=== PATIENT | female | born 1925 | race Caucasian/White ===

== ENCOUNTER 2016-12-20 11:57 | Inpatient (IN) | payer OTHER, MEDICARE ==
[2016-12-20] MEDS ORDERED: SODIUM CHLORIDE 1,000 ML IV STA (12:18)
[2016-12-20 12:26] LABS: BASOPHIL 0.2 % (0-2.0); EOSINOPHIL 14.1 % (0-4.5); MCH 29.9 pg (25.7-33.7); MCHC 32.8 g/dl (32.0-36.0); MEAN CELL VOLUME 91.2 fl (80-96); MEAN PLT VOLUME 8.2 fl (7.5-11.1); NEUTROPHILS 65.2 % (42.8-82.8); PLATELET COUNT 205 K/MM3 (134-434); RDW 13.2 % (11.6-15.6); WHITE BLOOD COUNT 15.7 K/mm3 (4.0-10.0)
[2016-12-20 12:40] LABS: INR 1.18 (0.82-1.09)
[2016-12-20 12:43] LABS: ACTIVATED PTT 22.8 SECONDS (26.9-34.4)
[2016-12-20 12:51] LABS: STOOL FOR OCCULT BLOOD POSITIVE (NEGATIVE)
[2016-12-20 12:54] LABS: URINE APPEARANCE CLOUDY; URINE BILIRUBIN NEGATIVE (NEGATIVE); URINE BLOOD NEGATIVE (NEGATIVE); URINE COLOR DKYELLOW; URINE GLUCOSE (UA) NEGATIVE (NEGATIVE); URINE KETONE NEGATIVE (NEGATIVE); URINE LEUK ESTERASE NEGATIVE (NEGATIVE); URINE NITRITE NEGATIVE (NEGATIVE); URINE UROBILINOGEN NEGATIVE E.U./dl (0.2-1.0)
[2016-12-20 12:57] LABS: URINE PROTEIN 2+ (NEGATIVE)
[2016-12-20 12:58] LABS: URINE RBC 1 /hpf (0-3); URINE WBC 1 /hpf (3-5)
[2016-12-20 13:00] LABS: ALBUMIN 2.7 g/dl (3.4-5.0); ANION GAP 8 (8-16); BILIRUBIN,TOTAL 0.8 mg/dL (0.2-1.0); CALCIUM 8.2 mg/dL (8.5-10.1); CO2 25 mmol/L (21-32); GLUCOSE,RANDOM 142 mg/dL (74-106); SGOT/AST 15 U/L (15-37); SGPT/ALT 16 U/L (12-78); TOT PROT 5.3 g/dl (6.4-8.2)
[2016-12-20 13:02] LABS: ALK PHOS 90 U/L (45-117); TROPONIN I < 0.02 ng/ml (0.00-0.05)
--- NOTE | 2016-12-20 14:28 | PDOC ---
History of Present Illness - General Chief Complaint: Rectal Bleed Stated Complaint: RECTAL BLEEDING Time Seen by Provider: 12/20/16 12:17 History Source: Patient, Family Exam Limitations: No Limitations - History of Present Illness Travel History: No Initial Comments: 12/20/16 14:42 This is an 89 yo F with PMH of diverticular bleed (s/p partial colectomy 20 yrs ago, last occurence 5 ys ago, self resolving), incarcerated hernia repair (2012 Dr Wolff), IDDM, HTN and asthma, who presets due to acute GIB since 10 am this morning. She has since had 4 episodes of bright red, clumpy, nonpainful hematochezia. She was started on Naproxen 2 days ago by PCP for body pain s/p mechanical fall on Mon. She had nonmelenous nonmucous diarrhea for 2 days prior to the bleed. She complains mild nausea and lightheadedness, diffuse dull abdominal pain exacerbated by movement and occasional burning epigastric pain since this AM. Patient states that for the past week her PCP Dr Madrid has been working her up for leukocytosis, with a negative TTE on , negative chest CT and poor result pulmonary fxn test. She denies f/c, chest pain, sob, cough, orthopnea, palpitations, h/a, dysuria. 12/20/16 15:01 Abd x ray no free air or distended bowel CT abd w contrast ordered 12/20/16 15:04 CT abd/pelvis w. IV contrast shows diffuse diverticulosis, probable mild acute diverticulitis in transverse and L colon, 2 small ventral hernias containing fat. For further details please refer to report. 12/20/16 15:32 12/20/16 15:42 patient transferred to ICU bed 1 12/20/16 17:27 Timing/Duration: reports: constant Quality: reports: moderate Abdominal Pain Onset Location: reports: generalized abdomen Pain Radiation: reports: no radiation Activities at Onset: reports: none Aggravating Factors: improves with: Movement Alleviating Factors: improves with: None Past History - Travel Traveled outside of the country in the last 30 days: No Close contact w/someone who was outside of country & ill: No - Past Medical History Allergies/Adverse Reactions: Allergies Allergy/AdvReac Type Severity Reaction Status Date / Time codeine AdvReac "VIOLENTLY Verified 12/20/16 12:13 NAUSEAUS" morphine AdvReac "VIOLENTLY Verified 12/20/16 12:13 NAUSEAUS" Home Medications: Ambulatory Orders Albuterol Sulfate [Proair Respiclick] 90 mcg IH DAILY 12/20/16 Amlodipine Besylate [Norvasc -] 10 mg PO DAILY 12/20/16 Budesonide/Formeterol Fumarate [SYMBICORT 160/4.5mcg -] 1 inh PO DAILY 12/20/16 Escitalopram Oxalate [Lexapro -] 10 mg PO DAILY 12/20/16 Glipizide 7.5 mg PO DAILY 12/20/16 Insulin (Levemir) [Levemir Flexpen -] 14 units SQ DAILY 12/20/16 L.acidoph,Paracasei, B.lactis [Probiotic] 1 each PO DAILY 12/20/16 Lisinopril [Prinivil] 20 mg PO DAILY 12/20/16 Methimazole 10 mg PO DAILY 12/20/16 Metoprolol Tartrate 25 mg PO DAILY 12/20/16 Pantoprazole Sodium 40 mg PO DAILY 12/20/16 Vitamin B Complex 1 each PO DAILY 12/20/16 Anemia: No Asthma: Yes Cancer: No Cardiac Disorders: No Hx Myocardial Infarction: No CVA: No COPD: No CHF: No DVT: No Dementia: No Diabetes: Yes (INSULIN DEPENDENT) Dialysis: No GI Disorders: Yes (DIVERTICULOSIS) Disorders: No HTN: Yes Hypercholesterolemia: No Kidney Stones: No Liver Disease: No Thyroid Disease: No Lung CA: No - Surgical History Abdominal Surgery: Yes (PARTIAL COLECTOMY, 3 HERNIA REPAIRS, LAST IN 2012 ) Appendectomy: No Cardiac Surgery: No Cholecystectomy: No Other Surgical History: 12/20/16 15:41 HYSTERECTOMY, LARYNGEAL SURGERY - Psycho/Social/Smoking Cessation Hx Anxiety: No Suicidal Ideation: No Smoking Status: No Smoking History: Never smoked Number of Cigarettes Smoked Daily: 0 Hx Alcohol Use: No Drug/Substance Use Hx: No Substance Use Type: None Abd/GI Specific PMHX - Complaint Specific PMHX Colitis: No Diverticulitis: No Gall Bladder Disease: No GERD: Yes Hepatitis: No Irritable Bowel Synd (IBS): No Pancreatitis: No GI Ulcer Disease: No Other History: diverticular bleed Review of Systems - Review of Systems Able to Perform ROS?: Yes Is the patient limited Hebrew proficient: No Constitutional: No: Chills, Fever, Malaise Respiratory: No: Orthopnea, Shortness of Breath, SOB with Exertion, SOB at Rest Cardiac (ROS): Yes: Edema (chronic pedal ), Lightheadedness. No: Chest Pain, Irregular Heart Rate, Palpitations, Syncope, Chest Tightness ABD/GI: Yes: Abdominal Distended, Diarrhea, Nausea, Rectal Bleeding. No: Abd. Pain w/ defecation, Constipated, Vomiting, Abdominal cramping, Tarry Stools : No: Dysuria Musculoskeletal: No: Back Pain Integumentary: Yes: Bruising (on r shouolder, R hip, R knee s/p fall on mon ) Neurological: No: Headache Hematologic/Lymphatic: No: Anemia, Easy Bleeding, Easy Bruising *Physical Exam - Vital Signs Last Vital Signs Temp Pulse Resp BP Pulse Ox 98.2 F 66 18 128/51 100 12/20/16 12:10 12/20/16 13:36 12/20/16 13:36 12/20/16 13:36 12/20/16 13:36 - Physical Exam General Appearance: Yes: Moderate Distress HEENT: positive: EOMI, FERNANDO, Symmetrical Neck: positive: Supple Respiratory/Chest: positive: Lungs Clear, Normal Breath Sounds. negative: Crackles, Rales Cardiovascular: positive: Regular Rhythm, Regular Rate, S1, S2, Edema ( nonmitting moderate pedal edema (chronic) ). negative: JVD Gastrointestinal/Abdominal: positive: Tender (very tender, even during light percussion, especially in upper quadrants ), Decreased BS, Distended ( moderately ), Guarding (involutary, more in upper quadrants ). negative: Rebound, Hepatomegaly Rectal Exam: positive: decreased tone, heme positive stool, other (bright red blood, no lesions, nonpainful ). negative: melena Musculoskeletal: negative: CVA Tenderness Extremity: positive: Pedal Edema. negative: Calf Tenderness Integumentary: positive: Dry, Warm, Pale Neurologic: positive: braker passenger train II-XII NML intact, Fully Oriented, Alert, Motor Strength 5/5 ED Treatment Course - LABORATORY CBC & Chemistry Diagram: 12/20/16 16:45 12/20/16 12:20 - ADDITIONAL ORDERS Additional order review: Laboratory Results 12/20/16 12/20/16 12/20/16 12:42 12:20 12:20 INR PTT (Actin FS) Sodium 142 Potassium 4.9 Chloride 109 H Carbon Dioxide 25 Anion Gap 8 BUN 25 H D Creatinine 1.0 Creat Clearance w eGFR 52.20 Random Glucose 142 H D Lactic Acid Calcium 8.2 L Total Bilirubin 0.8 AST 15 D ALT 16 D Alkaline Phosphatase 90 Creatine Kinase 34 Troponin I < 0.02 Total Protein 5.3 L D Albumin 2.7 L D Lipase 81 Urine Color Dkyellow Urine Appearance Cloudy Urine pH 5.0 Urine Protein 2+ H Urine Glucose (UA) Negative Urine Ketones Negative Urine Blood Negative Urine Nitrite Negative Urine Bilirubin Negative Urine Urobilinogen Negative Ur Leukocyte Esterase Negative Urine RBC 1 Urine WBC 1 Ur Epithelial Cells Rare Stool Occult Blood Positive Blood Type O POSITIVE Antibody Screen Negative 12/20/16 12/20/16 12:20 12:20 INR 1.18 H PTT (Actin FS) 22.8 L Sodium Potassium Chloride Carbon Dioxide Anion Gap BUN Creatinine Creat Clearance w eGFR Random Glucose Lactic Acid 1.4 Calcium Total Bilirubin AST ALT Alkaline Phosphatase Creatine Kinase Troponin I Total Protein Albumin Lipase Urine Color Urine Appearance Urine pH Urine Protein Urine Glucose (UA) Urine Ketones Urine Blood Urine Nitrite Urine Bilirubin Urine Urobilinogen Ur Leukocyte Esterase Urine RBC Urine WBC Ur Epithelial Cells Stool Occult Blood Blood Type Antibody Screen 12/20/16 12:20 RBC 3.31 L MCV 91.2 MCHC 32.8 RDW 13.2 MPV 8.2 D Neutrophils % 65.2 Lymphocytes % 14.6 D Monocytes % 5.9 Eosinophils % 14.1 H Basophils % 0.2 12/20/16 16:17 cardiac profile negative, lactic acid negative 12/20/16 16:18 - RADIOLOGY Radiology Studies Ordered: Category Date Time Status ABDOMEN FLAT & UPRIGHT [RAD] Stat Radiology 12/20/16 12:58 Completed 12/20/16 16:18 XCR, abd x ray no acute pathology CT abd, pelvis with IV contrast w/o PO contrast Radiograph Interpretation: 12/20/16 16:19 12/20/16 16:19 - Medications Given in the ED: ED Medications Discontinued Medications Generic Name Dose Route Start Last Admin Trade Name Freq PRN Reason Stop Dose Admin Sodium Chloride 1,000 mls @ 1,000 mls/hr 12/20/16 12:18 12/20/16 12:41 Normal Saline - IV 12/20/16 13:17 1,000 mls/hr ASDIR STA Administration 12/20/16 16:19 NS 500 cc bolus max auguste NS @ 75 - Consult/PCP Time Called: 14:20 Case discussed with personal care physician: Ratna Plasencia Case discussed with consulting physician: Joseph Gerber - Additional Consults Time Called: 12:20 (message left ) Consult/PCP: Dr Wolff Medical Decision Making - Critical Care Time Total Critical Care Time (minutes): 90 Critical Care Statement: The care of this patient involved high complexity decision making to prevent further life threatening deterioration of the patient 's condition and/or to evalute & treat vital organ system(s) failure or risk of failure. *DC/Admit/Observation/Transfer Diagnosis at time of Disposition: Gastrointestinal bleed, Hypotension, Abdominal pain - Discharge Dispostion Admit: Yes Decision to Admit order Date/Time: 12/20/16 16:01 12/20/16 16:01 patient requires ICU monitoring 12/20/16 16:31 - Referrals
[2016-12-20] MEDS ORDERED: METRONIDAZOLE 500 MG PREMIXED 100 ML IVPB ONE ×2 (14:30→14:33)
--- NOTE | 2016-12-20 14:31 | PDOC ---
Attending Attestation - Resident Resident Name: Amina Basurto - ED Attending Attestation I have performed the following: I have examined & evaluated the patient, The case was reviewed & discussed with the resident, I agree w/resident's findings & plan, Exceptions are as noted - HPI HPI: 12/20/16 14:29 Agree with the resident's HPI as documented in the electronic medical record. - Physicial Exam PE: 12/20/16 14:29 Agree with the resident's physical examination as documented in the electronic medical record. - Medical Decision Making 12/20/16 14:29 89-year-old female with history of incarcerated abdominal hernia, diverticulitis /diverticulosis with GI bleed and partial colectomy in the past, hypertension, COPD who presents the emergency department with 4 bloody bowel movements and abdominal pain today. The patient was initially hypotensive but responded nicely to a fluid bolus. Differential diagnosis includes but is not limited to: Diverticular bleed, rapid upper GI bleed, AVM, anemia, dehydration, electrolyte abnormality, toxic/metabolic derangement. Plan: 1. Labs 2. Type and cross for 2 units 3. Urine analysis 4. CT scan of abdomen and pelvis 5. Pain management 6. Admit to a monitored setting 7. GI and general surgery consult
[2016-12-20] MEDS ORDERED: PIPERACILLIN/TAZOB 3.375 GM 50 ML IVPB ONE (14:33)
[2016-12-20] MEDS: PIPERACILLIN/TAZOB 3.375 GM 3.375 GM in DEXTROSE 5%-WATER - 50 ML IVPB ONE ×2 (14:33→15:11)
[2016-12-20] MEDS: SODIUM CHLORIDE 1,000 ML IV SCH (15:11)
--- NOTE | 2016-12-20 16:24 | EKG ---
Test Reason : Blood Pressure : / mmHG Vent. Rate : 071 BPM Atrial Rate : 071 BPM P-R Int : 126 ms QRS Dur : 104 ms QT Int : 414 ms P-R-T Axes : -04 -64 034 degrees QTc Int : 449 ms POOR DATA QUALITY, INTERPRETATION MAY BE ADVERSELY AFFECTED SINUS RHYTHM WITH PREMATURE ATRIAL COMPLEXES INCOMPLETE RIGHT BUNDLE BRANCH BLOCK LEFT ANTERIOR FASCICULAR BLOCK ABNORMAL ECG WHEN COMPARED WITH ECG OF 06-OCT-2012 20:09, INCOMPLETE RIGHT BUNDLE BRANCH BLOCK HAS REPLACED RIGHT BUNDLE BRANCH BLOCK T WAVE INVERSION NO LONGER EVIDENT IN ANTERIOR LEADS Confirmed by RASHAD YAÑEZ MD ([id number]) on 12/20/2016 4:23:58 PM Referred By: Confirmed By:RASHAD YAÑEZ MD
[2016-12-20 17:04] LABS: MCH 29.4 pg (25.7-33.7); MCHC 32.3 g/dl (32.0-36.0); MEAN PLT VOLUME 8.3 fl (7.5-11.1); PLATELET COUNT 177 K/MM3 (134-434); RDW 13.2 % (11.6-15.6); WHITE BLOOD COUNT 9.8 K/mm3 (4.0-10.0)
[2016-12-20 17:23] VITALS: BMI 32.2
[2016-12-20] MEDS: METRONIDAZOLE 500 MG PREMIXED 100 ML IVPB SCH (18:08)
--- NOTE | 2016-12-20 18:18 | CONSULT ---
Consult Consult Specialty:: PULM / CCM Referred by:: Dr. Ratna Plasencia Reason for Consultation:: GIB - History of Present Illness Chief Complaint: BRBPR History of Present Illness: Ms. Baron is an 89 y/o woman (Pt of Dr. Bere Madrid) w/ PMHx/o diverticular bleed (s/p partial colectomy 20 yrs ago, last occurence 5 ys ago, self resolving), incarcerated hernia repair (2012 Dr Wolff), IDDM, HTN and asthma , who presets to the ED today c/o BRBPR X 4 episodes since 10 AM this morning. Of note, the pt was recently started on Naproxen by her PCP for body pain s/p mechanical fall at home. In ED Hgb slid from 9.9 --> 7.8. pt presented w/ soft S & S of a possible peritonitis. CTAP shows diverticulitis. Pt transferred to the ICU for GIB. - History Source History Provided By: Patient, Family Member Limitations to Obtaining History: No Limitations - Past Medical History Cardio/Vascular: Yes: HTN Pulmonary: Yes: Asthma Gastrointestinal: Yes: Diverticulitis, Diverticulosis, GI Bleed Endocrine: Yes: Diabetes Mellitus - Past Surgical History Past Surgical History: Yes: Colectomy, Hernia Repair - Alcohol/Substance Use Hx Alcohol Use: No History of Substance Use: reports: None - Smoking History Smoking history: Never smoked Aproximately how many cigarettes per day: 0 - Social History Usual Living Arrangement: Other (Daughter Lives upstairs) Place of : [facility] History of Recent Travel: No Home Medications - Allergies Allergies/Adverse Reactions: Allergies Allergy/AdvReac Type Severity Reaction Status Date / Time codeine AdvReac "VIOLENTLY Verified 12/20/16 12:13 NAUSEAUS" morphine AdvReac "VIOLENTLY Verified 12/20/16 12:13 NAUSEAUS" - Home Medications Home Medications: Ambulatory Orders Albuterol Sulfate [Proair Respiclick] 90 mcg IH DAILY 12/20/16 Amlodipine Besylate [Norvasc -] 10 mg PO DAILY 12/20/16 Budesonide/Formeterol Fumarate [SYMBICORT 160/4.5mcg -] 1 inh PO DAILY 12/20/16 Escitalopram Oxalate [Lexapro -] 10 mg PO DAILY 12/20/16 Glipizide 7.5 mg PO DAILY 12/20/16 Insulin (Levemir) [Levemir Flexpen -] 14 units SQ DAILY 12/20/16 L.acidoph,Paracasei, B.lactis [Probiotic] 1 each PO DAILY 12/20/16 Lisinopril [Prinivil] 20 mg PO DAILY 12/20/16 Methimazole 10 mg PO DAILY 12/20/16 Metoprolol Tartrate 25 mg PO DAILY 12/20/16 Pantoprazole Sodium 40 mg PO DAILY 12/20/16 Vitamin B Complex 1 each PO DAILY 12/20/16 Family Disease History - Family Disease History Family Disease History: Heart Disease: Mother Review of Systems - Review of Systems Constitutional: reports: No Symptoms Eyes: reports: No Symptoms HENT: reports: No Symptoms Neck: reports: No Symptoms Cardiovascular: reports: No Symptoms Respiratory: reports: No Symptoms Gastrointestinal: reports: Abdominal Pain, Diarrhea, Nausea, Rectal Bleeding Genitourinary: reports: No Symptoms Breasts: reports: No Symptoms Reported Musculoskeletal: reports: No Symptoms Integumentary: reports: No Symptoms Neurological: reports: No Symptoms Endocrine: reports: No Symptoms Hematology/Lymphatic: reports: No Symptoms Psychiatric: reports: No Symptoms Pain Intensity: 6 Physical Exam Vital Signs: Vital Signs Temperature 98.2 F 12/20/16 17:06 Pulse Rate 64 12/20/16 17:06 Respiratory Rate 18 12/20/16 17:06 Blood Pressure 135/41 12/20/16 17:06 O2 Sat by Pulse Oximetry (%) 95 12/20/16 17:06 Constitutional: Yes: Well Nourished, No Distress Eyes: Yes: WNL, Conjunctiva Clear, EOM Intact HENT: Yes: WNL, Atraumatic, Normocephalic Neck: Yes: WNL, Supple, Trachea Midline Cardiovascular: Yes: WNL, Regular Rate and Rhythm Respiratory: Yes: WNL, Regular, CTA Bilaterally Gastrointestinal: Yes: WNL, Normal Bowel Sounds, Soft, Abdomen, Obese, Distention, Rectal Bleeding ...Rectal Exam: Yes: Deferred Renal/: Yes: WNL Breast(s): Yes: WNL Musculoskeletal: Yes: WNL Extremities: Yes: WNL Edema: No Peripheral Pulses WNL: No Neurological: Yes: WNL, Alert ...Motor Strength: WNL Psychiatric: Yes: WNL, Alert, Oriented Labs: CBC, BMP 12/20/16 16:45 Imaging - Results Chest X-ray: Image Reviewed (12/20: No ETT, No CVC, retrocardiac opacity (My Read) .) Cat Scan: Report Reviewed (12/20: Transverse L colon Diverticulitis.) EKG: Image Reviewed (RSR in the 70's w/ ect, incomplete R BBB, L ant fascicular block, no ST or T-wave aberrations, QTc = 449ms, no acute process (My Read).) Problem List - Problems (1) Gastrointestinal bleed Code(s): K92.2 - GASTROINTESTINAL HEMORRHAGE, UNSPECIFIED (2) Diverticulitis large intestine Code(s): K57.32 - DVTRCLI OF LG INT W/O PERFORATION OR ABSCESS W/O BLEEDING (3) Hypertension Code(s): I10 - ESSENTIAL (PRIMARY) HYPERTENSION (4) Asthma Code(s): J45.909 - UNSPECIFIED ASTHMA, UNCOMPLICATED (5) Diabetes Code(s): E11.9 - TYPE 2 DIABETES MELLITUS WITHOUT COMPLICATIONS Assessment/Plan ASSESS: -GIB -HTN -Asthma -IDDM PLAN: -NPO -FSs -Supp FiO2 for an SpO2 > 92% -Nebs -IS -HOB > 30 -Active T & S -Large bore IVs X 2 -Serial CBCs -Normal transfusion thresholds -IV Tylenol for Pain -GI Consult -SX Consult -Strict I's & O's -Trend BUN/Cr -Replete e-lytes prn -PPI -Hold off on any AC while GIB -Can cover broad w/ LVQ -D/c to Med Surg Thank you for this interesting consult Ryan Zacarias, ACNP-BC [id number] PULM / CCM
--- NOTE | 2016-12-20 18:48 | CONS ---
DATE OF CONSULTATION: 12/20/2016 I was asked by the ER to evaluate this patient for hematochezia. The patient is an 89-year-old white female, who can elicit some of her medical history. She is alert and conversant. Apparently she tells me that she has a past medical history of gastrointestinal disease; she has had extensive diverticular disease; and reports over 20 years ago having a partial colectomy for diverticular bleeding. She has followed with Dr. Harkins over the years. She thought her last colonoscopy was around 5 years ago but he has not been here for over 10 years. So anyway, her last exam she says showed diverticulosis without other findings. She says every 4 to 5 years she comes in with an episode of rectal bleeding that she believes is due to diverticular disease. The patient otherwise had been feeling fine until recently. No problems eating, going to the bathroom. She says a couple days ago, about 3 days ago, she fell. She bruised her right hip, and for the pain she was put on Naprosyn twice a day. This morning she awakened and had some abdominal cramping and urgency to go to the bathroom; and she had bright red blood: she had 1 large episode. She has not had further bleeding since she has been to the ER, where she came right afterward. The patient thinks she may have passed out. She was dizzy. Other than that, she has had no significant recent loss of appetite, dysphagia, early satiety, significant heartburn, or change in bowel habits. The patient has a past medical history of hypertension, COPD. She says she never smoked and does not drink alcohol. Apparently she says that her only surgery was the prior partial colectomy, although in the chart it says that she has a history of AVMs as well. It looks like we have not seen this patient in the past. It looks like she underwent surgery in 2012. She had a ventral hernia repair with mesh, done by Dr. Pederson. She has also seen Dr. Wolff at that time. She has seen Dr. Nathan, of Cardiology. She had a prior CAT scan in September of 2012 that noted a jejunal partial small-bowel obstruction due to the ventral hernia and that was what indicated surgery at that time. She says since then she has done quite well. MEDICATIONS: Currently in the ER she is getting Zofran, lisinopril, Levaquin, and Flagyl. It looks like she got Zosyn and Unasyn. Currently on physical exam, she is in absolutely no acute distress. She is slightly pale in appearance. She appears comfortable. She is breathing easy. She is a heavyset woman, elderly. Her dentition is extremely poor. Her mouth is very dry. Her abdomen is distended, and there is a healed scar that is large and vertical, and there is significant tenderness to palpation in the left upper quadrant. There is no rebound or guarding. The other quadrants on palpation are not as tender. I did not do the rectal because the ER team stated that they did and that she had bright red blood from below. Her lab data is notable in that her white count is 16,000 with a hemoglobin 9.9, hematocrit 30. Prior, she had a hemoglobin of 10 when she was discharged from her prior surgery but before that, her hemoglobin was 12. Her MCV is now 91, with 205,000 platelets. Her coagulation studies reveal an INR of 1.1. Her chemistries: serum sodium 142, potassium 4.9, chloride 109, bicarbonate 25, BUN 25, creatinine 1, AST 15, ALT 16, alkaline phosphatase of 90, lipase is 81, albumin 2.7. It is my impression this patient is an 89-year-old woman with multiple medical problems, who has a history of significant diverticular disease in the past. She is status post partial colectomy and comes in with acute hematochezia in the setting of recent acute nonsteroidal usage. She had some abdominal cramping. She has tenderness in the left upper quadrant, and she has an elevated white count. I question whether she has an underlying ischemic colitis. Other possibilities could be NSAID-induced ulceration of the small bowel and colon. At the present time, she appears to be hemodynamically stable. I agree with empiric antibiotics and abdominal imaging, keeping her n.p.o. for now. If her hemoglobin and hematocrit remains stable, and her vitals, I would certainly start a clear liquid diet and see how this plays out. If she has onset of acute abrupt hemodynamically unstable bleeding, then she may need a CT angio and intervention. Otherwise, once she is improved, she should be cleaned out, when she is medically stable, to undergo a diagnostic colonoscopy. But for now, I agree with your current management and supportive care. The patient's hemoglobin of 9.9 is prehydration. I suspect post hydration her value will drop so that should be watched closely, at which point a transfusion may be necessary. We will continue to be available to aid in management of this patient. Should she also have more brisk bleeding, then there would be no harm in starting some IV octreotide. We will continue to be available to aid in management of this patient. Thank you kindly. CARMEN MENDOZA M.D. [id number]
[2016-12-20] MEDS ORDERED: ACETAMINOPHEN 1000 MG/100 ML VIAL (NON FORMULARY) IVPB ONE (18:49)
[2016-12-20] MEDS: PANTOPRAZOLE SODIUM 40 MG/100 ML PRE-DOCKED IVPB SCH (21:52)
[2016-12-20] MEDS ORDERED: PANTOPRAZOLE SODIUM 40 MG in SODIUM CHLORIDE 100 ML IVPB SCH (22:00)
[2016-12-21] MEDS: METRONIDAZOLE 500 MG PREMIXED 100 ML IVPB SCH ×3 (02:00→17:18)
--- NOTE | 2016-12-21 08:25 | HP ---
Admitting History and Physical - Primary Care Physician PCP: Bree Madrid - Past Medical History Cardiovascular: Yes: HTN Pulmonary: Yes: Asthma Gastrointestinal: Yes: Diverticulitis, Diverticulosis, GI Bleed Endocrine: Yes: Diabetes Mellitus - Past Surgical History Past Surgical History: Yes: Colectomy, Hernia Repair - Smoking History Smoking history: Never smoked Aproximately how many cigarettes per day: 0 - Alcohol/Substance Use Hx Alcohol Use: No History of Substance Use: reports: None - Social History History of Recent Travel: No <Bree Madrid - Last Filed: 12/21/16 08:25> - Admission History of Present Illness: This is an 89 yo F with PMH of diverticular bleed (s/p partial colectomy 20 yrs ago, last occurence 5 ys ago, self resolving), incarcerated hernia repair (2012 Dr Wolff), IDDM, HTN, thyroiditis, vocal cord tumour and asthma, who presets due to acute GIB. She has since had 4 episodes of bright red, clumpy, nonpainful hematochezia. She was started on Naproxen 2 days ago by me for body pain s/p mechanical fall on Mon. She had nonmelenous nonmucous diarrhea for 2 days prior to the bleed. She complains mild nausea and lightheadedness, diffuse dull abdominal pain exacerbated by movement and occasional burning epigastric pain since this AM. Patient transfused. Given IVF with significant improvement of BP. Cat scan showed diverticulosis with mild acute diverticulitis. Patient also started on IV abx. Patient admitted to ICU for close monitoring. GI as well as Surgery consult requested. Patient seen by me in ICU today. Chart reviewed, events noted. Patient is pale but says she feels better. Still very weak. No further bleeding so far. Complains of mild abdominal pain. Denies chest pain. History Source: Patient Limitations to Obtaining History: No Limitations <Nichole Hubbard - Last Filed: 12/21/16 10:57> Home Medications <Bree Madrid - Last Filed: 12/21/16 08:25> <Nichole Hubbard - Last Filed: 12/21/16 10:57> - Allergies Allergies/Adverse Reactions: Allergies Allergy/AdvReac Type Severity Reaction Status Date / Time codeine AdvReac "VIOLENTLY Verified 12/20/16 12:13 NAUSEAUS" morphine AdvReac "VIOLENTLY Verified 12/20/16 12:13 NAUSEAUS" - Home Medications Home Medications: Ambulatory Orders Albuterol Sulfate [Proair Respiclick] 90 mcg IH DAILY 12/20/16 Amlodipine Besylate [Norvasc -] 10 mg PO DAILY 12/20/16 Budesonide/Formeterol Fumarate [SYMBICORT 160/4.5mcg -] 1 inh PO DAILY 12/20/16 Escitalopram Oxalate [Lexapro -] 10 mg PO DAILY 12/20/16 Glipizide 7.5 mg PO DAILY 12/20/16 Insulin (Levemir) [Levemir Flexpen -] 14 units SQ DAILY 12/20/16 L.acidoph,Paracasei, B.lactis [Probiotic] 1 each PO DAILY 12/20/16 Lisinopril [Prinivil] 20 mg PO DAILY 12/20/16 Methimazole 10 mg PO DAILY 12/20/16 Metoprolol Tartrate 25 mg PO DAILY 12/20/16 Pantoprazole Sodium 40 mg PO DAILY 12/20/16 Vitamin B Complex 1 each PO DAILY 12/20/16 Family Disease History - Family Disease History Family Disease History: Heart Disease: Mother <Bree Madrid - Last Filed: 12/21/16 08:25> Review of Systems Findings/Remarks: see HPI <Nichole Hubbard - Last Filed: 12/21/16 10:57> Physical Examination Vital Signs: Vital Signs Temperature 97.8 F 12/21/16 02:00 Pulse Rate 71 12/21/16 04:00 Respiratory Rate 20 12/21/16 04:00 Blood Pressure 142/57 12/21/16 04:00 O2 Sat by Pulse Oximetry (%) 96 12/20/16 20:59 Labs: CBC, BMP 12/20/16 16:45 <Bree Madrid - Last Filed: 12/21/16 08:25> Vital Signs: Vital Signs Temperature 97.6 F 12/21/16 08:00 Pulse Rate 94 H 12/21/16 08:00 Respiratory Rate 20 12/21/16 08:00 Blood Pressure 147/44 12/21/16 08:00 O2 Sat by Pulse Oximetry (%) 100 12/21/16 08:00 Constitutional: Yes: No Distress, Pallor Eyes: Yes: Conjunctiva Clear Neck: Yes: Supple Cardiovascular: Yes: Regular Rate and Rhythm Respiratory: Yes: CTA Bilaterally Gastrointestinal: Yes: Soft, Other (Mild tenderness to RLQ area) Edema: No Neurological: Yes: Alert Labs: CBC, BMP 12/20/16 16:45 <Nichole Hubbard - Last Filed: 12/21/16 10:57> Imaging - Results Chest X-ray: Report Reviewed Cat Scan: Report Reviewed EKG: Report Reviewed <Nichole Hubbard - Last Filed: 12/21/16 10:57> Problem List - Problems (1) Diabetes Code(s): E11.9 - TYPE 2 DIABETES MELLITUS WITHOUT COMPLICATIONS (2) Diverticulitis large intestine Code(s): K57.32 - DVTRCLI OF LG INT W/O PERFORATION OR ABSCESS W/O BLEEDING (3) Gastrointestinal bleed Code(s): K92.2 - GASTROINTESTINAL HEMORRHAGE, UNSPECIFIED (4) Hypotension Code(s): I95.9 - HYPOTENSION, UNSPECIFIED <Nichole Hubbard - Last Filed: 12/21/16 10:57> Assessment/Plan Keep NPO. Abx. Close monitoring in ICU. Monitor electrolytes. Continue protonix. Avoid NSAIDs. GI and Surgery to follow. Discussed with ICU attending also as well as medical billing coder. Will follow. Critical care time: 35 mins Documentation prepared by Nichole Hubbard, acting as a medical professionals for Bree Madrid MD. <Nichole Hubbard - Last Filed: 12/21/16 10:57>
[2016-12-21] MEDS: PANTOPRAZOLE SODIUM 40 MG/100 ML PRE-DOCKED IVPB SCH (09:35)
[2016-12-21] MEDS: LEVOFLOXACIN 500 MG IVPB 100 ML IVPB SCH (09:35)
[2016-12-21] MEDS: SODIUM CHLORIDE 1,000 ML IV SCH (09:37)
[2016-12-21] MEDS ORDERED: SODIUM CHLORIDE 1,000 ML IV STA (10:15)
[2016-12-21] MEDS ORDERED: ONDANSETRON 4 MG/2 ML VIAL IVPB ONE (10:30)
[2016-12-21 11:27] LABS: BASOPHIL 0.2 % (0-2.0); EOSINOPHIL 11.7 % (0-4.5); MCH 29.9 pg (25.7-33.7); MCHC 33.3 g/dl (32.0-36.0); MEAN CELL VOLUME 89.7 fl (80-96); MEAN PLT VOLUME 8.4 fl (7.5-11.1); NEUTROPHILS 64.8 % (42.8-82.8); PLATELET COUNT 157 K/MM3 (134-434); RDW 14.9 % (11.6-15.6); WHITE BLOOD COUNT 8.7 K/mm3 (4.0-10.0)
--- NOTE | 2016-12-21 11:43 | PN ---
Teaching Attending Note Name of Resident: Imelda Jacobo ATTENDING PHYSICIAN STATEMENT I saw and evaluated the patient. I reviewed the resident's note and discussed the case with the resident. I agree with the resident's findings and plan as documented. SUBJECTIVE: Patient seen and examined in the ICU. Awake and alert. Some mild discomfort in the RLQ. No CP or SOB. (+) this AM. Intake & Output 12/18/16 12/19/16 12/20/16 12/21/16 23:59 23:59 23:59 23:59 Intake Total 1600 1275 Balance 1600 1275 Weight 164 lb 8 oz Last Vital Signs Temp Pulse Resp BP Pulse Ox 97.7 F 99 H 14 81/42 100 12/21/16 10:00 12/21/16 10:00 12/21/16 10:00 12/21/16 10:00 12/21/16 08:00 Active Medications Sodium Chloride (Normal Saline -) 1,000 mls @ 75 mls/hr IV ASDIR [facility] Last Admin: 12/21/16 09:37 Dose: 75 mls/hr Metronidazole (Flagyl 500mg Premixed Ivpb -) 100 mls @ 100 mls/hr IVPB Q8H-IV [facility] Last Admin: 12/21/16 09:35 Dose: 100 mls/hr Levofloxacin (Levaquin 500 Mg Premixed Ivpb -) 100 mls @ 100 mls/hr IVPB DAILY [facility] Last Admin: 12/21/16 09:35 Dose: 100 mls/hr Pantoprazole Sodium (Protonix 40mg Ivpb (Pre-Docked)) 40 mg IVPB BID [facility] Last Admin: 12/21/16 09:35 Dose: 40 mg Constitutional: Yes: Awake and alert Eyes: Yes: WNL, Conjunctiva Clear, EOM Intact HENT: Yes: WNL, Atraumatic, Normocephalic Neck: Yes: WNL, Supple, Trachea Midline Cardiovascular: Yes: WNL, Regular Rate and Rhythm Respiratory: Yes: WNL, Regular, CTA Bilaterally Gastrointestinal: Yes: (+) mild tenderness RLQ, Soft, Obese, No Distention ...Rectal Exam: Yes: Deferred Renal/: Yes: WNL Breast(s): Yes: WNL Musculoskeletal: Yes: WNL Extremities: Yes: WNL Edema: No Peripheral Pulses WNL: No Neurological: Yes: WNL, Alert ...Motor Strength: WNL Psychiatric: Yes: WNL, Alert, Oriented Labs: Laboratory Results - last 24 hr 12/20/16 12/20/16 12/20/16 12:20 12:20 12:20 WBC 15.7 H D RBC 3.31 L Hgb 9.9 L Hct 30.2 L MCV 91.2 MCHC 32.8 RDW 13.2 Plt Count 205 D MPV 8.2 D Neutrophils % 65.2 Lymphocytes % 14.6 D Monocytes % 5.9 Eosinophils % 14.1 H Basophils % 0.2 INR 1.18 H PTT (Actin FS) 22.8 L Sodium Potassium Chloride Carbon Dioxide Anion Gap BUN Creatinine Creat Clearance w eGFR Random Glucose Lactic Acid 1.4 Calcium Total Bilirubin AST ALT Alkaline Phosphatase Creatine Kinase Troponin I Total Protein Albumin Lipase Urine Color Urine Appearance Urine pH Ur Specific Kathleen Urine Protein Urine Glucose (UA) Urine Ketones Urine Blood Urine Nitrite Urine Bilirubin Urine Urobilinogen Ur Leukocyte Esterase Urine RBC Urine WBC Ur Epithelial Cells Stool Occult Blood Blood Type Antibody Screen Crossmatch 12/20/16 12/20/16 12/20/16 12:20 12:20 12:42 WBC RBC Hgb Hct MCV MCHC RDW Plt Count MPV Neutrophils % Lymphocytes % Monocytes % Eosinophils % Basophils % INR PTT (Actin FS) Sodium 142 Potassium 4.9 Chloride 109 H Carbon Dioxide 25 Anion Gap 8 BUN 25 H D Creatinine 1.0 Creat Clearance w eGFR 52.20 Random Glucose 142 H D Lactic Acid Calcium 8.2 L Total Bilirubin 0.8 AST 15 D ALT 16 D Alkaline Phosphatase 90 Creatine Kinase 34 Troponin I < 0.02 Total Protein 5.3 L D Albumin 2.7 L D Lipase 81 Urine Color Dkyellow Urine Appearance Cloudy Urine pH 5.0 Ur Specific Kathleen 1.020 Urine Protein 2+ H Urine Glucose (UA) Negative Urine Ketones Negative Urine Blood Negative Urine Nitrite Negative Urine Bilirubin Negative Urine Urobilinogen Negative Ur Leukocyte Esterase Negative Urine RBC 1 Urine WBC 1 Ur Epithelial Cells Rare Stool Occult Blood Positive Blood Type O POSITIVE Antibody Screen Negative Crossmatch See Detail 12/20/16 12/21/16 16:45 11:12 WBC 9.8 D 8.7 RBC 2.66 L 2.35 L Hgb 7.8 L D 7.0 L D Hct 24.2 L D 21.1 L MCV 91.0 89.7 MCHC 32.3 33.3 RDW 13.2 14.9 D Plt Count 177 157 MPV 8.3 8.4 Neutrophils % 64.8 Lymphocytes % 17.4 Monocytes % 5.9 Eosinophils % 11.7 H Basophils % 0.2 INR PTT (Actin FS) Sodium Potassium Chloride Carbon Dioxide Anion Gap BUN Creatinine Creat Clearance w eGFR Random Glucose Lactic Acid Calcium Total Bilirubin AST ALT Alkaline Phosphatase Creatine Kinase Troponin I Total Protein Albumin Lipase Urine Color Urine Appearance Urine pH Ur Specific Kathleen Urine Protein Urine Glucose (UA) Urine Ketones Urine Blood Urine Nitrite Urine Bilirubin Urine Urobilinogen Ur Leukocyte Esterase Urine RBC Urine WBC Ur Epithelial Cells Stool Occult Blood Blood Type Antibody Screen Crossmatch Problem List - Problems (1) Gastrointestinal bleed Code(s): K92.2 - GASTROINTESTINAL HEMORRHAGE, UNSPECIFIED (2) Diverticulitis large intestine Code(s): K57.32 - DVTRCLI OF LG INT W/O PERFORATION OR ABSCESS W/O BLEEDING (3) Hypertension Code(s): I10 - ESSENTIAL (PRIMARY) HYPERTENSION (4) Asthma Code(s): J45.909 - UNSPECIFIED ASTHMA, UNCOMPLICATED (5) Diabetes Code(s): E11.9 - TYPE 2 DIABETES MELLITUS WITHOUT COMPLICATIONS Assessment/Plan -NPO -CT Angio -O2 for an SpO2 > 92% -BD TX -IS -HOB > 30 -Large bore IVs -Serial CBCs -Normal transfusion thresholds -Strict I's & O's -PPI -Hold AC Dr Eastman critical care time spent in reviewing chart, evaluating patient and formulating plan 40 min
[2016-12-21 11:48] LABS: ALBUMIN 1.9 g/dl (3.4-5.0); CALCIUM 7.5 mg/dL (8.5-10.1)
[2016-12-21 11:51] LABS: COCKROFT - GAULT 49.912; CREATININE 0.9 mg/dL (0.55-1.02)
[2016-12-21 11:53] LABS: BILIRUBIN,TOTAL 0.5 mg/dL (0.2-1.0); TOT PROT 3.9 g/dl (6.4-8.2)
[2016-12-21 11:56] LABS: INR 1.34 (0.82-1.09); PROTHROMBIN TIME (PATIENT) 14.8 SEC (9.98-11.88)
[2016-12-21] MEDS ORDERED: DEXTROSE 5%-NORMAL SALINE 1,000 ML IV SCH (12:15)
--- NOTE | 2016-12-21 14:02 | CONSULT ---
Consult Consult Specialty:: sURGERY Reason for Consultation:: lower g.i. bleeding. - History of Present Illness History of Present Illness: Patient c/o rectal bleeding since yesterday. It had stopped last night but resumed this a.m. No h/o nausea, or vomiting. S/P Partial colectomy about 20 years ago. S/P Ventral hernia repair in 2013 Has been on naprosyn for pain , secondary to a fall about 3 days ago. - History Source History Provided By: Patient Limitations to Obtaining History: No Limitations - Past Medical History Cardio/Vascular: Yes: HTN Pulmonary: Yes: Asthma Gastrointestinal: Yes: Diverticulitis, Diverticulosis, GI Bleed Endocrine: Yes: Diabetes Mellitus - Past Surgical History Past Surgical History: Yes: Colectomy, Hernia Repair - Alcohol/Substance Use Hx Alcohol Use: No History of Substance Use: reports: None - Smoking History Smoking history: Never smoked Aproximately how many cigarettes per day: 0 - Social History Usual Living Arrangement: Other (Daughter Lives upstairs) History of Recent Travel: No Home Medications - Allergies Allergies/Adverse Reactions: Allergies Allergy/AdvReac Type Severity Reaction Status Date / Time codeine Allergy Severe Verified 12/21/16 13:51 heparin Allergy Severe Verified 12/21/16 13:55 meperidine HCl [From Demerol] Allergy Severe Verified 12/21/16 13:54 morphine Allergy Severe Verified 12/21/16 13:51 - Home Medications Home Medications: Ambulatory Orders Albuterol Sulfate [Proair Respiclick] 90 mcg IH DAILY 12/20/16 Amlodipine Besylate [Norvasc -] 10 mg PO DAILY 12/20/16 Budesonide/Formeterol Fumarate [SYMBICORT 160/4.5mcg -] 1 inh PO DAILY 12/20/16 Escitalopram Oxalate [Lexapro -] 10 mg PO DAILY 12/20/16 Glipizide 7.5 mg PO DAILY 12/20/16 Insulin (Levemir) [Levemir Flexpen -] 14 units SQ DAILY 12/20/16 L.acidoph,Paracasei, B.lactis [Probiotic] 1 each PO DAILY 12/20/16 Lisinopril [Prinivil] 20 mg PO DAILY 12/20/16 Methimazole 10 mg PO DAILY 12/20/16 Metoprolol Tartrate 25 mg PO DAILY 12/20/16 Pantoprazole Sodium 40 mg PO DAILY 12/20/16 Vitamin B Complex 1 each PO DAILY 12/20/16 Family Disease History - Family Disease History Family Disease History: Heart Disease: Mother Physical Exam Vital Signs: Vital Signs Temperature 97.8 F 12/21/16 13:00 Pulse Rate 81 12/21/16 13:00 Respiratory Rate 14 12/21/16 13:00 Blood Pressure 115/41 12/21/16 13:00 O2 Sat by Pulse Oximetry (%) 100 12/21/16 11:55 Gastrointestinal: Yes: Other (Vertical abdominal surgical scar.) Labs: CBC, BMP 12/21/16 11:12 12/21/16 11:12 Imaging - Results Cat Scan: Report Reviewed, Image Reviewed (Ventral hernia with fat, diffuse diverticulosis, with left sided divericulitis, s/o sigmoid resection) Problem List - Problems (1) Gastrointestinal bleed Code(s): K92.2 - GASTROINTESTINAL HEMORRHAGE, UNSPECIFIED Qualifiers: GI bleed type/associated pathology: diverticulosis Qualified Code(s) : K57.91 - Diverticulosis of intestine, part unspecified, without perforation or abscess with bleeding (2) Diabetes Code(s): E11.9 - TYPE 2 DIABETES MELLITUS WITHOUT COMPLICATIONS Qualifiers: Diabetes mellitus complication status: without complication (3) Diverticulitis large intestine w/o perforation or abscess w/bleeding Code(s): K57.33 - DVTRCLI OF LG INT W/O PERFORATION OR ABSCESS W BLEEDING Assessment/Plan Transfuse prbc, gi for colonoscopy Hematocrit dropped from 30 to 21.2 Colonoscopy, CT angio is negative for any localisation of bleeding. G.I. consult requested for colonoscopy. Monitor hematocrit, transfuse. to maintain hematocrit over 30
--- NOTE | 2016-12-21 14:30 | PN ---
Physical Exam: SUBJECTIVE: Patient seen and examined. BRB per rectum continuously flowing with few clots that starting this morning around 9:30AM associated with diffuse intermitted cramping abdominal pain and nausea. pain is worse with palpation and movement. OBJECTIVE: Vital Signs Period Temp Pulse Resp BP Sys/[place] Pulse Ox Last 24 Hr 97.4 F-98.2 F 60-99 14-20 81-154/41-70 95-100 GENERAL: The patient is awake, alert, and fully oriented, in acute distress, dry heaving and c/o not feeling well. EYES: PERRL, extraocular movements intact, sclera anicteric, conjunctival pallor No ptosis. ENT: nares patent, oropharynx clear without exudates/erythema/lesions, dry mucous membranes. NECK: Trachea midline, full range of motion, supple. LUNGS: Breath sounds equal, clear to auscultation bilaterally, no wheezes, no crackles, no accessory muscle use. HEART: Regular rate and rhythm, S1, S2 without murmur, rub or gallop. ABDOMEN: Soft, tender in all quadrants marked in LLQ, nondistended, normoactive bowel sounds, no guarding, no rebound. well healed vertical abdominal scar below the umbilicus. EXTREMITIES: 2+ DP and radial pulses, warm, well-perfused, no edema. NEUROLOGICAL: Cranial nerves II through XII grossly intact. Normal speech RECTAL: brb per rectum with few clots, no anal fissures noted, no external ulcers. Laboratory Results - last 24 hr 12/20/16 12/21/16 12/21/16 16:45 11:12 11:12 WBC 9.8 D 8.7 RBC 2.66 L 2.35 L Hgb 7.8 L D 7.0 L D Hct 24.2 L D 21.1 L MCV 91.0 89.7 MCHC 32.3 33.3 RDW 13.2 14.9 D Plt Count 177 157 MPV 8.3 8.4 Neutrophils % 64.8 Lymphocytes % 17.4 Monocytes % 5.9 Eosinophils % 11.7 H Basophils % 0.2 INR 1.34 H Sodium Potassium Chloride Carbon Dioxide Anion Gap BUN Creatinine Creat Clearance w eGFR Random Glucose Calcium Total Bilirubin AST ALT Alkaline Phosphatase Total Protein Albumin 12/21/16 11:12 WBC RBC Hgb Hct MCV MCHC RDW Plt Count MPV Neutrophils % Lymphocytes % Monocytes % Eosinophils % Basophils % INR Sodium 145 Potassium 4.2 Chloride 116 H Carbon Dioxide 19 L D Anion Gap 10 BUN 24 H Creatinine 0.9 Creat Clearance w eGFR 58.95 Random Glucose 140 H Calcium 7.5 L Total Bilirubin 0.5 D AST 11 L D ALT 11 L D Alkaline Phosphatase 56 D Total Protein 3.9 L D Albumin 1.9 L D Active Medications Generic Name Dose Route Start Last Admin Trade Name Freq PRN Reason Stop Dose Admin Metronidazole 100 mls @ 100 mls/hr 12/20/16 18:00 12/21/16 09:35 Flagyl 500mg Premixed Ivpb - IVPB 100 mls/hr Q8H-IV [facility] Administration Levofloxacin 100 mls @ 100 mls/hr 12/21/16 10:00 12/21/16 09:35 Levaquin 500 Mg Premixed Ivpb - IVPB 100 mls/hr DAILY [facility] Administration Dextrose/Sodium Chloride 1,000 mls @ 75 mls/hr 12/21/16 12:15 12/21/16 12:14 D5-Ns - IV 75 mls/hr ASDIR SAIDA Administration Pantoprazole Sodium 40 mg 12/20/16 22:00 12/21/16 09:35 Protonix 40mg Ivpb (Pre-Docked) IVPB 40 mg BID SAIDA Administration ASSESSMENT/PLAN: 89 yr old woman with hx of partial colon resection, COPD, HTN presented with GIB in setting of NSAID use and diverticulitis on abdominal CT scan admitted to the ICU for continous GIB bleeding. - as per daughter and patient, the patient becomes "violently sick"(intense abdominal pain and vomiting) when given narcotics. Avoid narcotics. - as per daughter Hx of bleeding while on heparin - avoid heparin GI GIB likely from diverticulitis exacerbated by recent NSAID use CTA did not localize source of GI bleed, continue prbc's to maintain hgb>7.0 and hct>30, IVF d5/NS @75mls/hr with NS bolus to maintain BP MAP >65 GI to take patient to endoscopy/colonoscopy given acute hemorrhage once patient has been resuscitated. received 1 units prbc's, 2nd currently running, additional 3 units on hold continue flagy and levaquin for diverticulitis NPO, protonix 40mg IVPB BID zofran 4mg q6hr prn for nausea tylenol 1gm IVPB for pain - repeat CBC Q6hr to monitor h/h Cardiovascular bolus with NS as need to maintain BP MAP >65 hold home anti-HTN (norvasc, lisinopril, metoprolol tart) Pulmonary hx of COPD, maintaining saturation currently on room air restart home inhalers symbicort and respilk as needed, nasal cannula to maintain o2 sat >90% Endocrine IDDM II hold glipizide and levemir currently NPO, received d5/NS IVF maintain BGM 140-180, NISS Renal continue IVF, monitor for elevated Cr/YESICA as pt recently had abdominal CT scan and CTA within 48hrs and possibility of hypoperfusion secondary to hemorrhage avoid NSAIDS Infectious disease - coverage for diverticulitis levaquin 500mg IVPB daily - day 1 Flagyl 500mg IVPB q8hr - Day 1 Hematological maintain H/H >7/>30, transfuse prbc's prn consider transfusion of platelets and FFP if >3 units of prbc's and bleeding continues DVT: no AC due to acute bleed Diet: NPO Visit type - Emergency Visit Emergency Visit: No - New Patient This patient is new to me today: Yes Date on this admission: 12/21/16 - Critical Care Critical Care patient: No Total Critical Care Time (in minutes): 45 Critical Care Statement: The care of this patient involved high complexity decision making to prevent further life threatening deterioration of the patient 's condition and/or to evalute & treat vital organ system(s) failure or risk of failure.
[2016-12-21] MEDS: ACETAMINOPHEN 1000 MG/100 ML VIAL (NON FORMULARY) IVPB PRN ×2 (14:45→21:33)
--- NOTE | 2016-12-21 14:54 | PN ---
GI Progress Note Subjective: No acute events Bleeding continues with multiple dark red BM's today Currently receiving 2nd Unit PRBC and scheduled to have 3rd. CTA did not localize bleeding source - Objective Vital Signs: Vital Signs Temperature 97.6 F 12/21/16 14:00 Pulse Rate 89 12/21/16 14:00 Respiratory Rate 14 12/21/16 14:00 Blood Pressure 139/47 12/21/16 14:00 O2 Sat by Pulse Oximetry (%) 100 12/21/16 11:55 Constitutional: Calm Eyes: No: Sclera Icterus Cardiovascular: Yes: Tachycardia Respiratory: Yes: Diminished (at bases with poor inspiratory effort) Gastrointestinal Inspection: No: Distention ...Auscultate: Yes: Normoactive Bowel Sounds, Hyperactive Bowel Sounds ...Palpate: Yes: Tenderness (left side of abdomen) ...Percussion: No: Tympanitic Neurological: Yes: Alert, Oriented Labs: CBC, BMP 12/21/16 11:12 12/21/16 11:12 INR, PTT INR 1.34 (0.82-1.09) H 12/21/16 11:12 Problem List - Problems (1) Gastrointestinal bleed Assessment/Plan: Continued active bleeding without localization on CTA Discussed with Ms. Baron. Discussed Upper endoscopy to exclude brisk upper GI source (particularly on setting of escalated NSAID use) followed by colonoscopy once resucitated Discussed potential risks of the procedure like but not limited to bleeding, perforation requiring surgery to repair, infection, sedation medciation effetcs all of which could be potentially life threatening. She has agreed to the procedure Monitor H/H PPI Continued ICU care Code(s): K92.2 - GASTROINTESTINAL HEMORRHAGE, UNSPECIFIED Qualifiers: GI bleed type/associated pathology: diverticulosis Qualified Code(s) : K57.91 - Diverticulosis of intestine, part unspecified, without perforation or abscess with bleeding
[2016-12-21 16:50] LABS: MCH 29.6 pg (25.7-33.7); MCHC 32.6 g/dl (32.0-36.0); MEAN CELL VOLUME 90.8 fl (80-96); MEAN PLT VOLUME 9.3 fl (7.5-11.1); PLATELET COUNT 138 K/MM3 (134-434); RDW 14.2 % (11.6-15.6); WHITE BLOOD COUNT 5.7 K/mm3 (4.0-10.0)
[2016-12-21] MEDS: ONDANSETRON 4 MG/2 ML VIAL IVPUSH PRN (17:33)
[2016-12-21] MEDS: INSULIN SLIDING SCALE (NOVOLOG) 1 VIAL SQ SCH (17:38)
--- NOTE | 2016-12-21 17:38 | PN ---
Progress Note (short form) - Note Progress Note: Repeat Hgb after PRBC transfusion 6.4. Started receiving 3rd unit PRBC Was going to take her to endo now however needs continued resuscitation prior to endoscopic evaluation Dr. Moscoso is call or contact centre manager tonight and made him aware of Ms. Baron's current clinical condition Problem List - Problems (1) Gastrointestinal bleed Code(s): K92.2 - GASTROINTESTINAL HEMORRHAGE, UNSPECIFIED Qualifiers: GI bleed type/associated pathology: diverticulosis Qualified Code(s) : K57.91 - Diverticulosis of intestine, part unspecified, without perforation or abscess with bleeding
[2016-12-21] MEDS: PANTOPRAZOLE SODIUM 80 MG in SODIUM CHLORIDE 100 ML IVPB SCH (18:10)
[2016-12-21 21:49] LABS: BASOPHIL 0.1 % (0-2.0); EOSINOPHIL 0.2 % (0-4.5); MCH 29.3 pg (25.7-33.7); MEAN CELL VOLUME 88.9 fl (80-96); MEAN PLT VOLUME 8.9 fl (7.5-11.1); NEUTROPHILS 83.1 % (42.8-82.8); PLATELET COUNT 139 K/MM3 (134-434); RDW 13.2 % (11.6-15.6); WHITE BLOOD COUNT 11.2 K/mm3 (4.0-10.0)
[2016-12-22 02:24] LABS: BASOPHIL 0.2 % (0-2.0); EOSINOPHIL 0.3 % (0-4.5); MCH 29.7 pg (25.7-33.7); MCHC 33.7 g/dl (32.0-36.0); MEAN PLT VOLUME 9.2 fl (7.5-11.1); NEUTROPHILS 73.5 % (42.8-82.8); PLATELET COUNT 137 K/MM3 (134-434); RDW 13.3 % (11.6-15.6); WHITE BLOOD COUNT 9.9 K/mm3 (4.0-10.0)
[2016-12-22] MEDS: METRONIDAZOLE 500 MG PREMIXED 100 ML IVPB SCH ×3 (02:30→17:03)
[2016-12-22] MEDS: PANTOPRAZOLE SODIUM 80 MG in SODIUM CHLORIDE 100 ML IVPB SCH ×4 (03:53→13:30)
[2016-12-22 06:08] LABS: BASOPHIL 0.1 % (0-2.0); MCH 29.9 pg (25.7-33.7); MCHC 34.4 g/dl (32.0-36.0); MEAN CELL VOLUME 86.9 fl (80-96); MEAN PLT VOLUME 8.6 fl (7.5-11.1); NEUTROPHILS 68.6 % (42.8-82.8); PLATELET COUNT 146 K/MM3 (134-434); RDW 13.7 % (11.6-15.6); WHITE BLOOD COUNT 9.6 K/mm3 (4.0-10.0)
[2016-12-22 06:34] LABS: COCKROFT - GAULT 33.15; CREATININE 1.4 mg/dL (0.55-1.02); MAGNESIUM 1.8 mg/dL (1.8-2.4); PHOSPHOROUS 3.9 mg/dL (2.5-4.9)
[2016-12-22 06:40] LABS: CALCIUM 6.9 mg/dL (8.5-10.1)
[2016-12-22] MEDS: INSULIN SLIDING SCALE (NOVOLOG) 1 VIAL SQ SCH ×2 (07:00→16:56)
--- NOTE | 2016-12-22 07:51 | PN ---
Physical Exam: SUBJECTIVE: Patient seen and examined. c/o right rib pain with movement, was unable to sleep last night. says her abdominal pain has decreased, has been having less blood per rectum. feels hungry and c/o dry mouth. denies nausea, vomiting, fever, chest pain, lightheadedness. pt required further resuscitation yesterday afternoon - unable to be taken for GI intervention. OBJECTIVE: Vital Signs Period Temp Pulse Resp BP Sys/Clifton Pulse Ox Last 24 Hr 97.0 F-98.5 F 72-112 14-20 81-149/34-90 100-100 GENERAL: The patient is awake, in no acute distress. HEAD: Normal with no signs of trauma. EYES: PERRL, extraocular movements intact, sclera anicteric ENT: Ears normal, nares patent, oropharynx clear without exudates, dry mucous membranes CHEST: right lateral chest ttp, no bruising, skin intact, no swelling NECK: Trachea midline, full range of motion, supple. LUNGS: Breath sounds equal, clear to auscultation bilaterally, no wheezes, no crackles HEART: Regular rate and rhythm, S1, S2 without murmur, rub or gallop. ABDOMEN: Soft, tender at epigastrium, nondistended, normoactive bowel sounds, no guarding, no rebound, EXTREMITIES: 2+ b/l radial and dp pulses, warm, well-perfused, no edema. diffuse purpura black/blue in appearance on right knee without swelling/erythema , skin intact, ROM wnl on knee extension and flexion on active and passive motion RECTUM: copious dark red blood with dark clots Laboratory Results - last 24 hr 12/21/16 12/21/16 12/21/16 11:12 11:12 11:12 WBC 8.7 RBC 2.35 L Hgb 7.0 L D Hct 21.1 L MCV 89.7 MCHC 33.3 RDW 14.9 D Plt Count 157 MPV 8.4 Neutrophils % 64.8 Lymphocytes % 17.4 Monocytes % 5.9 Eosinophils % 11.7 H Basophils % 0.2 INR 1.34 H Sodium 145 Potassium 4.2 Chloride 116 H Carbon Dioxide 19 L D Anion Gap 10 BUN 24 H Creatinine 0.9 Creat Clearance w eGFR 58.95 POC Glucometer Random Glucose 140 H Calcium 7.5 L Phosphorus Magnesium Total Bilirubin 0.5 D AST 11 L D ALT 11 L D Alkaline Phosphatase 56 D Total Protein 3.9 L D Albumin 1.9 L D 12/21/16 12/21/16 12/21/16 13:17 15:50 17:37 WBC 5.7 D RBC 2.16 L Hgb 6.4 L* Hct 19.6 L MCV 90.8 MCHC 32.6 RDW 14.2 Plt Count 138 MPV 9.3 D Neutrophils % Lymphocytes % Monocytes % Eosinophils % Basophils % INR Sodium Potassium Chloride Carbon Dioxide Anion Gap BUN Creatinine Creat Clearance w eGFR POC Glucometer [phone] Random Glucose Calcium Phosphorus Magnesium Total Bilirubin AST ALT Alkaline Phosphatase Total Protein Albumin 12/21/16 12/22/16 12/22/16 21:35 02:00 05:20 WBC 11.2 H D 9.9 RBC 3.41 L D 2.97 L Hgb 10.0 L D 8.8 L D Hct 30.3 L D 26.1 L MCV 88.9 88.0 MCHC 33.0 33.7 RDW 13.2 13.3 Plt Count 139 137 MPV 8.9 9.2 Neutrophils % 83.1 H D 73.5 Lymphocytes % 11.9 D 17.7 D Monocytes % 4.7 8.3 Eosinophils % 0.2 D 0.3 Basophils % 0.1 0.2 INR Sodium 147 H Potassium 4.6 Chloride 120 H Carbon Dioxide 21 Anion Gap 6 L BUN 27 H Creatinine 1.4 H D Creat Clearance w eGFR POC Glucometer Random Glucose 182 H D Calcium 6.9 L* Phosphorus 3.9 Magnesium 1.8 Total Bilirubin AST ALT Alkaline Phosphatase Total Protein Albumin 12/22/16 05:20 WBC 9.6 RBC 2.80 L Hgb 8.4 L Hct 24.3 L MCV 86.9 MCHC 34.4 RDW 13.7 Plt Count 146 MPV 8.6 Neutrophils % 68.6 Lymphocytes % 21.0 Monocytes % 9.3 Eosinophils % 1.0 D Basophils % 0.1 INR Sodium Potassium Chloride Carbon Dioxide Anion Gap BUN Creatinine Creat Clearance w eGFR POC Glucometer Random Glucose Calcium Phosphorus Magnesium Total Bilirubin AST ALT Alkaline Phosphatase Total Protein Albumin Active Medications Generic Name Dose Route Start Last Admin Trade Name Freq PRN Reason Stop Dose Admin Acetaminophen 1,000 mg 12/21/16 14:22 12/21/16 21:33 Ofirmev Injection - IVPB 12/22/16 08:23 1,000 mg Q6H PRN Administration FEVER OR PAIN Metronidazole 100 mls @ 100 mls/hr 12/20/16 18:00 12/22/16 02:30 Flagyl 500mg Premixed Ivpb - IVPB 100 mls/hr Q8H-IV SAIDA Administration Levofloxacin 100 mls @ 100 mls/hr 12/21/16 10:00 12/21/16 09:35 Levaquin 500 Mg Premixed Ivpb - IVPB 100 mls/hr DAILY SAIDA Administration Dextrose/Sodium Chloride 1,000 mls @ 75 mls/hr 12/21/16 12:15 12/21/16 12:14 D5-Ns - IV 75 mls/hr ASDIR SAIDA Administration Pantoprazole Sodium 80 mg/ 100 mls @ 10 mls/hr 12/21/16 17:30 12/22/16 03:53 Sodium Chloride IVPB 10 mls/hr Q10H SAIDA Administration 8 MG/HR Insulin Aspart 1 vial 12/21/16 16:45 12/22/16 07:00 Novolog Vial Sliding Scale - SQ Not Given BIDI SAIDA Protocol Ondansetron HCl 4 mg 12/21/16 16:10 12/21/16 17:33 Zofran Injection IVPUSH 4 mg Q6H PRN Administration NAUSEA AND/OR VOMITING ASSESSMENT/PLAN: 89 yr old woman with hx of partial colon resection, COPD, HTN presented with GIB in setting of NSAID use and diverticulitis on abdominal CT scan admitted to the ICU for continous GIB bleeding. - as per daughter and patient, the patient becomes "violently sick"(intense abdominal pain and vomiting) when given narcotics. Avoid narcotics. - as per daughter Hx of bleeding while on heparin - avoid heparin GI GIB likely from diverticulitis exacerbated by recent NSAID use CTA did not localize source of GI bleed, continue prbc's to maintain hgb>7.0 and hct>30, IVF d5/1/2 NS @75mls/hr with NS bolus to maintain BP MAP >65 GI to take patient to endoscopy/colonoscopy today to possibly identify source of bleeding received 4 units prbc's. continue flagyl and levaquin for diverticulitis NPO, protonix 40mg IVPB BID zofran 4mg q6hr prn for nausea tylenol 1gm IVPB for pain - repeat CBC Q6hr to monitor h/h Cardiovascular bolus with NS as need to maintain BP MAP >65 hold home anti-HTN (norvasc, lisinopril, metoprolol tart) Pulmonary hx of COPD, maintaining saturation currently on room air restart home inhalers symbicort and respilk as needed, nasal cannula to maintain o2 sat >90% Endocrine IDDM II hold glipizide and levemir currently NPO, received d5/1/2 NS IVF maintain BGM 140-180, NISS Renal YESICA in setting of hemorrhage and recent contrast use, change fluid to 1/2 NS due to elevated sodium avoid NSAIDS Infectious disease - coverage for diverticulitis levaquin 500mg IVPB daily - day 2 Flagyl 500mg IVPB q8hr - Day 2 Hematological maintain H/H >7/>30, transfuse prbc's prn DVT: no AC due to acute bleed Diet: NPO Visit type - Emergency Visit Emergency Visit: No - New Patient This patient is new to me today: No - Critical Care Critical Care patient: Yes Total Critical Care Time (in minutes): 39 Critical Care Statement: The care of this patient involved high complexity decision making to prevent further life threatening deterioration of the patient 's condition and/or to evalute & treat vital organ system(s) failure or risk of failure.
[2016-12-22] MEDS: LEVOFLOXACIN 500 MG IVPB 100 ML IVPB SCH (09:13)
--- NOTE | 2016-12-22 09:33 | PN ---
GI Progress Note Subjective: Total of 4 units given from admission (3 yesterday) Less rectal bleeding overnight - Objective Vital Signs: Vital Signs Temperature 98.1 F 12/22/16 09:00 Pulse Rate 103 H 12/22/16 09:00 Respiratory Rate 18 12/22/16 09:00 Blood Pressure 137/44 12/22/16 09:00 O2 Sat by Pulse Oximetry (%) 100 12/22/16 08:00 Constitutional: Calm Eyes: No: Sclera Icterus Cardiovascular: Yes: Regular Rate and Rhythm Respiratory: Yes: Diminished (at bases bilaterally) ...Auscultate: Yes: Normoactive Bowel Sounds ...Palpate: Yes: Tenderness (left abdomen) ...Percussion: No: Tympanitic Neurological: Yes: Alert Labs: CBC, BMP 12/22/16 05:20 12/22/16 05:20 INR, PTT INR 1.34 (0.82-1.09) H 12/21/16 11:12 Problem List - Problems (1) Gastrointestinal bleed Assessment/Plan: The plan was for EGD last night however status was tenuous. Hemodynamically stable at this point. Plan is for EGD/Colonoscopy today with rapid bowel prep via NGT Continued ICU care PPI drip Monitor H/H Surgery on board ICU care Code(s): K92.2 - GASTROINTESTINAL HEMORRHAGE, UNSPECIFIED Qualifiers: GI bleed type/associated pathology: diverticulosis Qualified Code(s) : K57.91 - Diverticulosis of intestine, part unspecified, without perforation or abscess with bleeding
[2016-12-22] MEDS ORDERED: PEG3350/SOD SULF,BICARB,CL/KCL 4,000 ML SOLN.RECON PO STA (09:42)
--- NOTE | 2016-12-22 09:47 | PN ---
Progress Note (short form) - Note Progress Note: NGT placed through left nare. Tethered to nose at the 50cm zoran Problem List - Problems (1) Gastrointestinal bleed Code(s): K92.2 - GASTROINTESTINAL HEMORRHAGE, UNSPECIFIED Qualifiers: GI bleed type/associated pathology: diverticulosis Qualified Code(s) : K57.91 - Diverticulosis of intestine, part unspecified, without perforation or abscess with bleeding
[2016-12-22] MEDS: ONDANSETRON 4 MG/2 ML VIAL IVPUSH PRN ×2 (09:50→13:40)
--- NOTE | 2016-12-22 09:50 | PN ---
Progress Note, Physician Chief Complaint: Has bloody bowel movement x 2 today Received 4 units total PRBC NGT placed today will be going for EGD/Colonoscopy today - Current Medication List Current Medications: Active Medications Metronidazole (Flagyl 500mg Premixed Ivpb -) 100 mls @ 100 mls/hr IVPB Q8H-IV SAIDA Last Admin: 12/22/16 09:13 Dose: 100 mls/hr Levofloxacin (Levaquin 500 Mg Premixed Ivpb -) 100 mls @ 100 mls/hr IVPB DAILY SAIDA Last Admin: 12/22/16 09:13 Dose: 100 mls/hr Dextrose/Sodium Chloride (D5-Ns -) 1,000 mls @ 75 mls/hr IV ASDIR SAIDA Last Admin: 12/21/16 12:14 Dose: 75 mls/hr Pantoprazole Sodium 80 mg/ (Sodium Chloride) 100 mls @ 10 mls/hr IVPB Q10H SAIDA PRN Reason: 8 MG/HR Last Admin: 12/22/16 03:53 Dose: 10 mls/hr Insulin Aspart (Novolog Vial Sliding Scale -) 1 vial SQ BIDI SAIDA PRN Reason: Protocol Last Admin: 12/22/16 07:00 Dose: Not Given Ondansetron HCl (Zofran Injection) 4 mg IVPUSH Q6H PRN PRN Reason: NAUSEA AND/OR VOMITING Last Admin: 12/21/16 17:33 Dose: 4 mg - Objective Vital Signs: Vital Signs Temperature 98.1 F 12/22/16 09:00 Pulse Rate 103 H 12/22/16 09:00 Respiratory Rate 18 12/22/16 09:00 Blood Pressure 137/44 12/22/16 09:00 O2 Sat by Pulse Oximetry (%) 100 12/22/16 08:00 Constitutional: Yes: Anxious Cardiovascular: Yes: Regular Rate and Rhythm Respiratory: Yes: Diminished Gastrointestinal: Yes: Soft, Abdomen, Obese, Tenderness (epigastrium, rt upper quadrant). No: Normal Bowel Sounds, Distention Edema: Yes Edema: LLE: Trace, RLE: Trace Psychiatric: Yes: Alert, Oriented Labs: CBC, BMP 12/22/16 05:20 12/22/16 05:20 INR, PTT INR 1.34 (0.82-1.09) H 12/21/16 11:12 Problem List - Problems (1) Abdominal pain Code(s): R10.9 - UNSPECIFIED ABDOMINAL PAIN (2) Diverticulitis large intestine Code(s): K57.32 - DVTRCLI OF LG INT W/O PERFORATION OR ABSCESS W/O BLEEDING (3) Gastrointestinal bleed Code(s): K92.2 - GASTROINTESTINAL HEMORRHAGE, UNSPECIFIED Qualifiers: GI bleed type/associated pathology: diverticulosis Qualified Code(s) : K57.91 - Diverticulosis of intestine, part unspecified, without perforation or abscess with bleeding Assessment/Plan PLAN NPO IV fluids Will be getting Golytely for EGD /Colonoscopy Protonix IV Spoke with with Dr Wolff yesterday Transfuse one more unit PRBC prior to GI interventions Spoke with resident today SCD for DVT prophylaxis IV antibiotics
[2016-12-22 10:34] LABS: MCH 30.4 pg (25.7-33.7); MCHC 34.6 g/dl (32.0-36.0); MEAN CELL VOLUME 87.7 fl (80-96); MEAN PLT VOLUME 7.9 fl (7.5-11.1); PLATELET COUNT 139 K/MM3 (134-434); RDW 13.9 % (11.6-15.6); WHITE BLOOD COUNT 10.5 K/mm3 (4.0-10.0)
--- NOTE | 2016-12-22 11:24 | PN ---
Teaching Attending Note Name of Resident: Imelda aJcobo ATTENDING PHYSICIAN STATEMENT I saw and evaluated the patient. I reviewed the resident's note and discussed the case with the resident. I agree with the resident's findings and plan as documented. SUBJECTIVE: Patient seen and examined in the ICU. Awake and alert. (+) nausea and dry heaving. No change in RLQ pain. No CP or SOB. Intake & Output 12/19/16 12/20/16 12/21/16 12/22/16 23:59 23:59 23:59 23:59 Intake Total 1600 4535 1182.5 Balance 1600 4535 1182.5 Weight 164 lb 8 oz 172 lb 2.896 oz 173 lb 8.061 oz Last Vital Signs Temp Pulse Resp BP Pulse Ox 98.2 F 96 H 18 156/49 100 12/22/16 11:00 12/22/16 11:14 12/22/16 11:00 12/22/16 11:00 12/22/16 11:14 Active Medications Metronidazole (Flagyl 500mg Premixed Ivpb -) 100 mls @ 100 mls/hr IVPB Q8H-IV SAIDA Last Admin: 12/22/16 09:13 Dose: 100 mls/hr Levofloxacin (Levaquin 500 Mg Premixed Ivpb -) 100 mls @ 100 mls/hr IVPB DAILY SAIDA Last Admin: 12/22/16 09:13 Dose: 100 mls/hr Dextrose/Sodium Chloride (D5-Ns -) 1,000 mls @ 75 mls/hr IV ASDIR SAIDA Last Admin: 12/21/16 12:14 Dose: 75 mls/hr Pantoprazole Sodium 80 mg/ (Sodium Chloride) 100 mls @ 10 mls/hr IVPB Q10H SAIDA PRN Reason: 8 MG/HR Last Admin: 12/22/16 03:53 Dose: 10 mls/hr Insulin Aspart (Novolog Vial Sliding Scale -) 1 vial SQ BIDI SAIDA PRN Reason: Protocol Last Admin: 12/22/16 07:00 Dose: Not Given Ondansetron HCl (Zofran Injection) 4 mg IVPUSH Q6H PRN PRN Reason: NAUSEA AND/OR VOMITING Last Admin: 12/22/16 09:50 Dose: 4 mg Constitutional: Yes: Awake and alert Eyes: Yes: WNL, Conjunctiva Clear, EOM Intact HENT: Yes: WNL, Atraumatic, Normocephalic Neck: Yes: WNL, Supple, Trachea Midline Cardiovascular: Yes: WNL, Regular Rate and Rhythm Respiratory: Yes: WNL, Regular, CTA Bilaterally Gastrointestinal: Yes: (+) mild tenderness RLQ, Soft, Obese, No Distention ...Rectal Exam: Yes: Deferred Renal/: Yes: WNL Breast(s): Yes: WNL Musculoskeletal: Yes: WNL Extremities: Yes: WNL Edema: No Peripheral Pulses WNL: No Neurological: Yes: WNL, Alert ...Motor Strength: WNL Psychiatric: Yes: WNL, Alert, Oriented Labs: Laboratory Results - last 24 hr 12/20/16 12/21/16 12/21/16 12:20 11:12 11:12 WBC 8.7 RBC 2.35 L Hgb 7.0 L D Hct 21.1 L MCV 89.7 MCHC 33.3 RDW 14.9 D Plt Count 157 MPV 8.4 Neutrophils % 64.8 Lymphocytes % 17.4 Monocytes % 5.9 Eosinophils % 11.7 H Basophils % 0.2 INR 1.34 H Sodium Potassium Chloride Carbon Dioxide Anion Gap BUN Creatinine Creat Clearance w eGFR POC Glucometer Random Glucose Calcium Phosphorus Magnesium Total Bilirubin AST ALT Alkaline Phosphatase Total Protein Albumin Blood Type O POSITIVE Antibody Screen Negative Crossmatch See Detail 12/21/16 12/21/16 12/21/16 11:12 13:17 15:50 WBC 5.7 D RBC 2.16 L Hgb 6.4 L* Hct 19.6 L MCV 90.8 MCHC 32.6 RDW 14.2 Plt Count 138 MPV 9.3 D Neutrophils % Lymphocytes % Monocytes % Eosinophils % Basophils % INR Sodium 145 Potassium 4.2 Chloride 116 H Carbon Dioxide 19 L D Anion Gap 10 BUN 24 H Creatinine 0.9 Creat Clearance w eGFR 58.95 POC Glucometer [phone] Random Glucose 140 H Calcium 7.5 L Phosphorus Magnesium Total Bilirubin 0.5 D AST 11 L D ALT 11 L D Alkaline Phosphatase 56 D Total Protein 3.9 L D Albumin 1.9 L D Blood Type Antibody Screen Crossmatch 12/21/16 12/21/16 12/22/16 17:37 21:35 02:00 WBC 11.2 H D 9.9 RBC 3.41 L D 2.97 L Hgb 10.0 L D 8.8 L D Hct 30.3 L D 26.1 L MCV 88.9 88.0 MCHC 33.0 33.7 RDW 13.2 13.3 Plt Count 139 137 MPV 8.9 9.2 Neutrophils % 83.1 H D 73.5 Lymphocytes % 11.9 D 17.7 D Monocytes % 4.7 8.3 Eosinophils % 0.2 D 0.3 Basophils % 0.1 0.2 INR Sodium Potassium Chloride Carbon Dioxide Anion Gap BUN Creatinine Creat Clearance w eGFR POC Glucometer [phone] Random Glucose Calcium Phosphorus Magnesium Total Bilirubin AST ALT Alkaline Phosphatase Total Protein Albumin Blood Type Antibody Screen Crossmatch 12/22/16 12/22/16 12/22/16 05:20 05:20 10:15 WBC 9.6 10.5 H RBC 2.80 L 2.66 L Hgb 8.4 L 8.1 L Hct 24.3 L 23.4 L MCV 86.9 87.7 MCHC 34.4 34.6 RDW 13.7 13.9 Plt Count 146 139 MPV 8.6 7.9 Neutrophils % 68.6 Lymphocytes % 21.0 Monocytes % 9.3 Eosinophils % 1.0 D Basophils % 0.1 INR Sodium 147 H Potassium 4.6 Chloride 120 H Carbon Dioxide 21 Anion Gap 6 L BUN 27 H Creatinine 1.4 H D Creat Clearance w eGFR POC Glucometer Random Glucose 182 H D Calcium 6.9 L* Phosphorus 3.9 Magnesium 1.8 Total Bilirubin AST ALT Alkaline Phosphatase Total Protein Albumin Blood Type Antibody Screen Crossmatch Problem List - Problems (1) Gastrointestinal bleed Code(s): K92.2 - GASTROINTESTINAL HEMORRHAGE, UNSPECIFIED (2) Diverticulitis large intestine Code(s): K57.32 - DVTRCLI OF LG INT W/O PERFORATION OR ABSCESS W/O BLEEDING (3) Hypertension Code(s): I10 - ESSENTIAL (PRIMARY) HYPERTENSION (4) Asthma Code(s): J45.909 - UNSPECIFIED ASTHMA, UNCOMPLICATED (5) Diabetes Code(s): E11.9 - TYPE 2 DIABETES MELLITUS WITHOUT COMPLICATIONS Assessment/Plan -NPO -For endoscopy -O2 for an SpO2 > 92% -BD TX -IS -HOB > 30 -Maintain large bore IVs -Serial CBCs -Normal transfusion thresholds -Strict I's & O's -PPI -Hold AC Dr Eastman critical care time spent in reviewing chart, evaluating patient and formulating plan 40 min
[2016-12-22] MEDS: DEXTROSE 5%-0.45% SALINE 1,000 ML IV SCH (11:45)
[2016-12-22] MEDS ORDERED: MIDAZOLAM HCL 2 MG/2 ML SINGLE DOSE VIAL ONE (15:32)
[2016-12-22] MEDS ORDERED: ePHEDrine SULFATE 50 MG/1 ML AMPULE ONE (15:33)
[2016-12-22] MEDS ORDERED: PHENYLEPHRINE HCL 10 MG/1 ML SINGLE DOSE VIAL ONE (15:33)
--- NOTE | 2016-12-22 16:22 | PN ---
Progress Note (short form) - Note Progress Note: EGD/Colon complete and reports left in procedural section of the physical chart No active bleeding source identified + pancolonic diverticulosis. Likely source of bleeding No obvious colitis or diverticulitis noted - Clear liquids - Monitor for active bleeding - If rebleeding, bleeding scan Problem List - Problems (1) Gastrointestinal bleed Code(s): K92.2 - GASTROINTESTINAL HEMORRHAGE, UNSPECIFIED Qualifiers: GI bleed type/associated pathology: diverticulosis Qualified Code(s) : K57.91 - Diverticulosis of intestine, part unspecified, without perforation or abscess with bleeding
[2016-12-22 16:34] LABS: MCH 29.7 pg (25.7-33.7); MCHC 33.8 g/dl (32.0-36.0); MEAN CELL VOLUME 87.9 fl (80-96); MEAN PLT VOLUME 8.1 fl (7.5-11.1); PLATELET COUNT 138 K/MM3 (134-434); RDW 13.9 % (11.6-15.6); WHITE BLOOD COUNT 9.2 K/mm3 (4.0-10.0)
[2016-12-22 22:00] LABS: BASOPHIL 0.2 % (0-2.0); EOSINOPHIL 0.9 % (0-4.5); MCH 29.2 pg (25.7-33.7); MCHC 33.3 g/dl (32.0-36.0); MEAN CELL VOLUME 87.7 fl (80-96); NEUTROPHILS 65.3 % (42.8-82.8); PLATELET COUNT 155 K/MM3 (134-434); RDW 13.9 % (11.6-15.6)
[2016-12-22] MEDS: ACETAMINOPHEN 1000 MG/100 ML VIAL (NON FORMULARY) IVPB PRN (22:32)
[2016-12-23] MEDS: METRONIDAZOLE 500 MG PREMIXED 100 ML IVPB SCH ×4 (02:00→21:00)
[2016-12-23 06:21] LABS: BASOPHIL 0.2 % (0-2.0); EOSINOPHIL 5.3 % (0-4.5); MCH 29.7 pg (25.7-33.7); MCHC 34.3 g/dl (32.0-36.0); MEAN CELL VOLUME 86.7 fl (80-96); MEAN PLT VOLUME 8.3 fl (7.5-11.1); NEUTROPHILS 64.1 % (42.8-82.8); PLATELET COUNT 162 K/MM3 (134-434)
[2016-12-23 06:45] LABS: CALCIUM 7.5 mg/dL (8.5-10.1); COCKROFT - GAULT 42.5; CREATININE 1.1 mg/dL (0.55-1.02); MAGNESIUM 1.7 mg/dL (1.8-2.4); PHOSPHOROUS 2.2 mg/dL (2.5-4.9)
[2016-12-23] MEDS: INSULIN SLIDING SCALE (NOVOLOG) 1 VIAL SQ SCH ×2 (07:15→16:41)
[2016-12-23] MEDS ORDERED: MAGNESIUM SULF 50% (8.12 MEQ/2 ML-1 GM VIAL) IVPB ONE (07:32)
[2016-12-23] MEDS ORDERED: POTASSIUM PHOSPHATE 30 MM in DEXTROSE 5%-WATER - 250 ML IVPB ONE (07:32)
[2016-12-23] MEDS: DEXTROSE 5%-0.45% SALINE 1,000 ML IV SCH ×2 (07:58→11:45)
--- NOTE | 2016-12-23 08:58 | PN ---
Physical Exam: SUBJECTIVE: Patient seen and examined. does not know if she has been urinating, but thinks not. denies chest pain, cough, sob, lightheadedness, dizziness. has intermittent abdominal cramping but improved from yesterday. OBJECTIVE: Vital Signs Period Temp Pulse Resp BP Sys/Clif[place] Pulse Ox Last 24 Hr 97.6 F-98.4 F 76-111 14-22 116-165/43-79 100-100 GENERAL: The patient is awake, in no acute distress. HEAD: Normal with no signs of trauma. EYES: PERRL, extraocular movements intact, sclera anicteric ENT: Ears normal, nares patent, oropharynx clear without exudates, dry mucous membranes CHEST: right lateral chest ttp, no bruising, skin intact, no swelling NECK: Trachea midline, full range of motion, supple. LUNGS: Breath sounds equal, clear to auscultation bilaterally, no wheezes, no crackles HEART: Regular rate and rhythm, S1, S2 without murmur, rub or gallop. ABDOMEN: Soft, mildly tender at epigastrium, nondistended, normoactive bowel sounds, no guarding, no rebound, no suprapubic tenderness. EXTREMITIES: 2+ b/l radial and dp pulses, warm, well-perfused, 1+ in b/l lower legs edema. diffuse purpura black/blue in appearance on right knee without swelling/erythema, skin intact, ROM wnl on knee extension and flexion on active and passive motion 1+ edema in b/l UE RECTUM: without blood Caputo in place Laboratory Results - last 24 hr 12/22/16 12/22/16 12/22/16 10:15 16:15 16:52 WBC 10.5 H 9.2 RBC 2.66 L 2.38 L Hgb 8.1 L 7.1 L D Hct 23.4 L 20.9 L MCV 87.7 87.9 MCHC 34.6 33.8 RDW 13.9 13.9 Plt Count 139 138 MPV 7.9 8.1 Neutrophils % Lymphocytes % Monocytes % Eosinophils % Basophils % Sodium Potassium Chloride Carbon Dioxide Anion Gap BUN Creatinine POC Glucometer [phone] Random Glucose Calcium Phosphorus Magnesium Albumin 12/22/16 12/23/16 12/23/16 21:20 05:15 05:15 WBC 11.0 H 9.0 RBC 2.52 L 2.32 L Hgb 7.4 L 6.9 L* Hct 22.1 L 20.1 L MCV 87.7 86.7 MCHC 33.3 34.3 RDW 13.9 14.0 Plt Count 155 162 MPV 8.0 8.3 Neutrophils % 65.3 64.1 Lymphocytes % 24.3 22.1 Monocytes % 9.3 8.3 Eosinophils % 0.9 5.3 H D Basophils % 0.2 0.2 Sodium 145 Potassium 3.9 Chloride 117 H Carbon Dioxide 23 Anion Gap 5 L BUN 19 H D Creatinine 1.1 H D POC Glucometer Random Glucose 159 H Calcium 7.5 L Phosphorus 2.2 L D Magnesium 1.7 L Albumin 12/23/16 12/23/16 05:15 05:44 WBC RBC Hgb Hct MCV MCHC RDW Plt Count MPV Neutrophils % Lymphocytes % Monocytes % Eosinophils % Basophils % Sodium Potassium Chloride Carbon Dioxide Anion Gap BUN Creatinine POC Glucometer [phone] Random Glucose Calcium Phosphorus Magnesium Albumin 2.1 L Active Medications Generic Name Dose Route Start Last Admin Trade Name Wilder PRN Reason Stop Dose Admin Acetaminophen 1,000 mg 12/22/16 22:24 12/22/16 22:32 Ofirmev Injection - IVPB 1,000 mg Q6H PRN Administration PAIN Metronidazole 100 mls @ 100 mls/hr 12/20/16 18:00 12/23/16 02:00 Flagyl 500mg Premixed Ivpb - IVPB 100 mls/hr Q8H-IV SAIDA Administration Levofloxacin 100 mls @ 100 mls/hr 12/21/16 10:00 12/22/16 09:13 Levaquin 500 Mg Premixed Ivpb - IVPB 100 mls/hr DAILY SAIDA Administration Dextrose/Sodium Chloride 1,000 mls @ 75 mls/hr 12/22/16 11:45 12/23/16 07:58 D5-1/2ns - IV 75 mls/hr ASDIR SAIDA Administration Potassium Phosphate 30 mm/ 260 mls @ 62.5 mls/hr 12/23/16 07:32 Dextrose IVPB 12/23/16 11:41 ONCE ONE Insulin Aspart 1 vial 12/21/16 16:45 12/23/16 07:15 Novolog Vial Sliding Scale - SQ Not Given BIDI SAIDA Protocol Ondansetron HCl 4 mg 12/21/16 16:10 12/22/16 13:40 Zofran Injection IVPUSH 4 mg Q6H PRN Administration NAUSEA AND/OR VOMITING Ranitidine HCl 150 mg 12/23/16 10:00 Zantac - PO DAILY SAIDA ASSESSMENT/PLAN: 89 yr old woman with hx of partial colon resection, COPD, HTN presented with GIB in setting of NSAID use and diverticulitis on abdominal CT scan admitted to the ICU for continous GIB bleeding. - as per daughter and patient, the patient becomes "violently sick"(intense abdominal pain and vomiting) when given narcotics. Avoid narcotics. - as per daughter Hx of bleeding while on heparin - avoid heparin GI GIB likely from diverticulitis exacerbated by recent NSAID use CTA did not localize source of GI bleed, colonoscopy/endoscopy without overt source of bleeding, diverticular bleed still likely to spontanously to stop without intervention, surgey consulted incase bleeding continues and surgical intervention becomes necessary continue prbc's to maintain hgb>7.0 and hct>30, discontinue fluids as patient becoming edematous. received 5 units prbc's. continue flagyl and levaquin for diverticulitis liquid diet, tolerating well zofran 4mg q6hr prn for nausea tylenol 1gm IVPB for pain - repeat CBC Q6hr to monitor h/h Cardiovascular - hold fluids, bolus of lasix given today for diureses hold home anti-HTN (norvasc, lisinopril, metoprolol tart) consider restarting BB /norvasc if BP elevates. Pulmonary hx of COPD, maintaining saturation currently on room air restart home inhalers symbicort and respilk as needed, nasal cannula to maintain o2 sat >90% Endocrine IDDM II hold glipizide and levemir maintain BGM 140-180, NISS Renal YESICA in setting of hemorrhage and recent contrast use, continue to monitor BUN/Cr avoid NSAIDS Infectious disease - coverage for diverticulitis levaquin 500mg IVPB daily - day 3 Flagyl 500mg IVPB q8hr - Day 3 Hematological maintain H/H >7/>30, transfuse prbc's prn DVT: scd's Diet: liquid diet Visit type - Emergency Visit Emergency Visit: No - New Patient This patient is new to me today: No - Critical Care Critical Care patient: Yes Total Critical Care Time (in minutes): 41 Critical Care Statement: The care of this patient involved high complexity decision making to prevent further life threatening deterioration of the patient 's condition and/or to evalute & treat vital organ system(s) failure or risk of failure.
[2016-12-23] MEDS: LEVOFLOXACIN 500 MG IVPB 100 ML IVPB SCH (09:01)
--- NOTE | 2016-12-23 09:17 | PN ---
Progress Note, Physician Chief Complaint: no bm today Received 4 units total PRBC-- now getting one more as Hb low noted EGD and colonoscopy - Current Medication List Current Medications: Active Medications Acetaminophen (Ofirmev Injection -) 1,000 mg IVPB Q6H PRN PRN Reason: PAIN Last Admin: 12/22/16 22:32 Dose: 1,000 mg Metronidazole (Flagyl 500mg Premixed Ivpb -) 100 mls @ 100 mls/hr IVPB Q8H-IV [facility] Last Admin: 12/23/16 09:01 Dose: 100 mls/hr Levofloxacin (Levaquin 500 Mg Premixed Ivpb -) 100 mls @ 100 mls/hr IVPB DAILY [facility] Last Admin: 12/23/16 09:01 Dose: 100 mls/hr Dextrose/Sodium Chloride (D5-1/2ns -) 1,000 mls @ 75 mls/hr IV ASDIR [facility] Last Admin: 12/23/16 07:58 Dose: 75 mls/hr Potassium Phosphate 30 mm/ (Dextrose) 260 mls @ 62.5 mls/hr IVPB ONCE ONE Stop: 12/23/16 11:41 Insulin Aspart (Novolog Vial Sliding Scale -) 1 vial SQ BIDI [facility] PRN Reason: Protocol Last Admin: 12/23/16 07:15 Dose: Not Given Ondansetron HCl (Zofran Injection) 4 mg IVPUSH Q6H PRN PRN Reason: NAUSEA AND/OR VOMITING Last Admin: 12/22/16 13:40 Dose: 4 mg Ranitidine HCl (Zantac -) 150 mg PO DAILY [facility] - Objective Vital Signs: Vital Signs Temperature 97.8 F 12/23/16 09:00 Pulse Rate 96 H 12/23/16 09:00 Respiratory Rate 21 12/23/16 09:00 Blood Pressure 143/52 12/23/16 09:00 O2 Sat by Pulse Oximetry (%) 100 12/23/16 08:00 Constitutional: Yes: No Distress Cardiovascular: Yes: Regular Rate and Rhythm Respiratory: Yes: Diminished Gastrointestinal: Yes: Normal Bowel Sounds, Soft. No: Distention, Tenderness Edema: No Labs: CBC, BMP 12/23/16 05:15 12/23/16 05:15 INR, PTT INR 1.34 (0.82-1.09) H 12/21/16 11:12 Problem List - Problems (1) Abdominal pain Code(s): R10.9 - UNSPECIFIED ABDOMINAL PAIN (2) Diverticulitis large intestine Code(s): K57.32 - DVTRCLI OF LG INT W/O PERFORATION OR ABSCESS W/O BLEEDING (3) Gastrointestinal bleed Code(s): K92.2 - GASTROINTESTINAL HEMORRHAGE, UNSPECIFIED Qualifiers: GI bleed type/associated pathology: diverticulosis Qualified Code(s) : K57.91 - Diverticulosis of intestine, part unspecified, without perforation or abscess with bleeding Assessment/Plan PLAN on clear liquids now IV fluids receiving PRBC now monitor Hb /.HCT SCD for DVT prophylaxis IV antibiotics pancolonic diverticulosis Family and pt expressed to change surgeon-- I consulted ironer hand surgeon yesterday
[2016-12-23] MEDS: RANITIDINE HCL 150 MG TABLET (FP) PO SCH (09:34)
--- NOTE | 2016-12-23 11:24 | PN ---
Teaching Attending Note Name of Resident: Imelda Jacobo ATTENDING PHYSICIAN STATEMENT I saw and evaluated the patient. I reviewed the resident's note and discussed the case with the resident. I agree with the resident's findings and plan as documented. SUBJECTIVE: Pt seen and examined in the ICU. No further bleeding, had brown stools yesterday. Mild shortness of breath without chest pain. Being transfused another PRBC due to persistent anemia on AM labs. OBJECTIVE: Last Vital Signs Temp Pulse Resp BP Pulse Ox 97.8 F 84 15 164/58 100 12/23/16 11:00 12/23/16 11:00 12/23/16 11:00 12/23/16 11:00 12/23/16 08:00 Intake & Output 12/20/16 12/21/16 12/22/16 12/23/16 23:59 23:59 23:59 23:59 Intake Total 1600 4535 3562.5 1025 Balance 1600 4535 3562.5 1025 Weight 164 lb 8 oz 172 lb 2.896 oz 173 lb 8.061 oz 175 lb 0.752 oz Gen: mildly tachypneic at rest Heart: RRR Lung: decreased breath sounds at the bases Abd: soft, nontender Ext: no edema CBC, BMP 12/23/16 05:15 12/23/16 05:15 Active Medications Acetaminophen (Ofirmev Injection -) 1,000 mg IVPB Q6H PRN PRN Reason: PAIN Last Admin: 12/22/16 22:32 Dose: 1,000 mg Metronidazole (Flagyl 500mg Premixed Ivpb -) 100 mls @ 100 mls/hr IVPB Q8H-IV [facility] Last Admin: 12/23/16 09:01 Dose: 100 mls/hr Levofloxacin (Levaquin 500 Mg Premixed Ivpb -) 100 mls @ 100 mls/hr IVPB DAILY [facility] Last Admin: 12/23/16 09:01 Dose: 100 mls/hr Dextrose/Sodium Chloride (D5-1/2ns -) 1,000 mls @ 75 mls/hr IV ASDIR [facility] Last Admin: 12/23/16 07:58 Dose: 75 mls/hr Potassium Phosphate 30 mm/ (Dextrose) 260 mls @ 62.5 mls/hr IVPB ONCE ONE Stop: 12/23/16 11:41 Last Admin: 12/23/16 09:32 Dose: 62.5 mls/hr Insulin Aspart (Novolog Vial Sliding Scale -) 1 vial SQ BIDI [facility] PRN Reason: Protocol Last Admin: 12/23/16 07:15 Dose: Not Given Ondansetron HCl (Zofran Injection) 4 mg IVPUSH Q6H PRN PRN Reason: NAUSEA AND/OR VOMITING Last Admin: 12/22/16 13:40 Dose: 4 mg Ranitidine HCl (Zantac -) 150 mg PO DAILY [facility] Last Admin: 12/23/16 09:34 Dose: 150 mg ASSESSMENT AND PLAN: GI Bleed Pancolic Diverticulosis Acute Blood Loss Anemia HTN DM - transfuse PRBC - monitor H/H - lasix after transfusion - d/c standing IVF - PO per GI - DVT prophylaxis
[2016-12-23] MEDS ORDERED: FUROSEMIDE 40 MG/4 ML INJECTABLE VIAL IVPUSH ONE (13:21)
[2016-12-23 15:36] LABS: BASOPHIL 0.3 % (0-2.0); EOSINOPHIL 5.3 % (0-4.5); MCH 28.4 pg (25.7-33.7); MCHC 32.9 g/dl (32.0-36.0); MEAN CELL VOLUME 86.2 fl (80-96); MEAN PLT VOLUME 7.7 fl (7.5-11.1); NEUTROPHILS 68.4 % (42.8-82.8); PLATELET COUNT 160 K/MM3 (134-434); RDW 14.7 % (11.6-15.6); WHITE BLOOD COUNT 10.5 K/mm3 (4.0-10.0)
--- NOTE | 2016-12-23 18:10 | PN ---
Progress Note (short form) - Note Progress Note: surgery pt seen and examined this afternoon. full consult dictated. 89f with multiple medical problems, previous left colectomy for diverticulitis, previous hernia repair, recently taking alleve, being managed by Dr. Wolff for presumed lower gi bleed. Request for second surgical opinion. Pt received 5 units prbc, had negative ct angio and negative egd, and negative colonoscopy yesterday. no further bleeding noted since yesterday. On exam abd is soft, nt. Plan- gi bleed, likely colonic but always possibility of small bowel as well. if patient rebleeds would cont attempt at localization. any emergent surgery without localization would require subtotal colectomy and ileostomy with risk of missing small bowel bleed. This surgery would be disabling for this patient if she survives. Agree with Dr. Wolff's management. will be available.
--- NOTE | 2016-12-23 20:19 | PN ---
GI Progress Note Subjective: No active bleeding today No abdominal pain received 1 U PRBC today - Objective Vital Signs: Vital Signs Temperature 97.2 F L 12/23/16 19:00 Pulse Rate 71 12/23/16 19:00 Respiratory Rate 18 12/23/16 19:00 Blood Pressure 160/56 12/23/16 19:00 O2 Sat by Pulse Oximetry (%) 100 12/23/16 13:52 Constitutional: Calm Eyes: No: Sclera Icterus Cardiovascular: Yes: Regular Rate and Rhythm Respiratory: Yes: CTA Bilaterally Gastrointestinal Inspection: Yes: Scars. No: Distention ...Auscultate: Yes: Normoactive Bowel Sounds ...Palpate: No: Tenderness Labs: CBC, BMP 12/23/16 15:20 12/23/16 05:15 INR, PTT INR 1.34 (0.82-1.09) H 12/21/16 11:12 Problem List - Problems (1) Gastrointestinal bleed Assessment/Plan: No overt bleeding On clears If no further bleeding advance to full liquids tomorrow Monitor hemodynamics and for active GI bleeding Code(s): K92.2 - GASTROINTESTINAL HEMORRHAGE, UNSPECIFIED Qualifiers: GI bleed type/associated pathology: diverticulosis Qualified Code(s) : K57.91 - Diverticulosis of intestine, part unspecified, without perforation or abscess with bleeding
[2016-12-23] MEDS ORDERED: RANITIDINE HCL 150 MG TABLET (FP) PO ONE (20:39)
[2016-12-24] MEDS: ACETAMINOPHEN 1000 MG/100 ML VIAL (NON FORMULARY) IVPB PRN ×3 (00:10→21:38)
--- NOTE | 2016-12-24 01:04 | CONS ---
DATE OF CONSULTATION: 12/23/2016 REASON FOR CONSULTATION: Gastrointestinal bleed. This is a second opinion surgical consultation, inpatient consultation. BRIEF HISTORY: This is an 89-year-old female with multiple medical problems who presented to [facility] with a GI bleed. She was being managed by Dr. Wolff, of general sedation. She had a CAT scan angiogram which was unable to identify the source of bleeding. She has an upper endoscopy which was negative. She had a colonoscopy which showed pandiverticulosis, but was unable to find an active bleed. Since yesterday, she has had no further bleeding. She has received in total 5 units of blood and her hemoglobin remains stable. Request was made for a 2nd surgical opinion. PAST MEDICAL HISTORY: Significant for hypertension, asthma, diabetes, diverticulitis, diverticulosis. PAST SURGICAL HISTORY: Includes a left colectomy for diverticulitis as well as a hernia repair. SOCIAL HISTORY: Negative for alcohol. Negative for tobacco. ALLERGIES: NARCOTICS. HOME MEDICATIONS: Include albuterol, Norvasc, lisinopril, Protonix. FAMILY HISTORY: Noncontributory. REVIEW OF SYSTEMS: General: Denies fatigue or malaise. Cardiac: Denies chest pain or palpitations. Respiratory: Denies shortness of breath, wheeze. Gastrointestinal: Currently no bloody bowel movements. They initially were bright red. She denies abdominal pain. Genitourinary: Denies dysuria. Musculoskeletal: Denies joint pain, joint swelling. Psychiatric: Denies anxiety, depression, or hearing voices. PHYSICAL EXAMINATION: General: This is a frail obese 89-year-old female in no distress. Vital signs: She is afebrile. Vital signs stable. Heart rate 70, blood pressure 155/42. HEENT: Head is normocephalic. Sclerae anicteric. Neck: Supple. Chest: Clear. Abdomen: Soft. Nontender. She has well healed midline surgical scars. Extremities: Have edema. LABORATORY: On review of her laboratory, her hemoglobin is 8.2 up from 6.9 this morning, it was 9.9 on admission. On review of her imaging, she had a CAT scan and angiogram which showed no evidence of active bleed on December 21, and she had a colonoscopy on December 22 which showed no evidence of active bleed. ASSESSMENT: This is an 89-year-old female with multiple medical problems presented with a likely lower gastrointestinal bleed noted to have pandiverticulosis on colonoscopy, but no active bleed has been localized on either CT angiogram or colonoscopy. Her upper endoscopy is negative which rules out an upper source of the bleed. At this point likely her bleed is from her colon, although there is still a small chance that this could be from her small bowel. At this point, she is not bleeding, and hopefully would not require surgery. If she does rebleed, every effort should be made in order to better localize the bleed, because if she required emergency surgery without localization, would recommend a subtotal colectomy with ileostomy. This would still have the chance of missing a small bowel bleed, and at her age would leave her disabled with an ileostomy and dehydration likely requiring fdc treatment for the rest of her life. She also would be unlikely to survive such a major surgery. At this time I agree with management and will be available as needed. DO CAROLYN [id number]
[2016-12-24] MEDS: METRONIDAZOLE 500 MG PREMIXED 100 ML IVPB SCH ×3 (01:58→19:49)
[2016-12-24 05:55] LABS: BASOPHIL 0.2 % (0-2.0); MCH 29.2 pg (25.7-33.7); MCHC 34.1 g/dl (32.0-36.0); MEAN CELL VOLUME 85.5 fl (80-96); MEAN PLT VOLUME 7.8 fl (7.5-11.1); NEUTROPHILS 60.8 % (42.8-82.8); PLATELET COUNT 170 K/MM3 (134-434); RDW 14.9 % (11.6-15.6); WHITE BLOOD COUNT 7.5 K/mm3 (4.0-10.0)
[2016-12-24] MEDS: INSULIN SLIDING SCALE (NOVOLOG) 1 VIAL SQ SCH ×2 (06:21→17:56)
[2016-12-24 06:23] LABS: CALCIUM 7.5 mg/dL (8.5-10.1); COCKROFT - GAULT 59.415; CREATININE 0.8 mg/dL (0.55-1.02)
--- NOTE | 2016-12-24 08:58 | PN ---
Physical Exam: SUBJECTIVE: Patient seen and examined feels better today, feels hungry. has rib pain with deep breaths today. OBJECTIVE: Vital Signs Period Temp Pulse Resp BP Sys/[place] Pulse Ox Last 24 Hr 97.2 F-97.8 F 65-96 15-22 135-164/39-84 100-100 EYES: PERRL, extraocular movements intact, sclera anicteric ENT: oropharynx clear without exudates, dry mucous membranes CHEST: right lateral chest ttp, no bruising, skin intact, no swelling NECK: Trachea midline, right IJ LUNGS: Breath sounds equal, clear to auscultation bilaterally, no wheezes, no crackles HEART: Regular rate and rhythm, S1, S2 without murmur, rub or gallop. ABDOMEN: Soft, tender at epigastrium and LLQ, nondistended, normoactive bowel sounds, no guarding, no rebound. EXTREMITIES: 2+ b/l radial and dp pulses, warm, well-perfused, no edema diffuse purpura black/blue in appearance on right knee without swelling/erythema , skin intact, ROM wnl on knee extension and flexion on active and passive motion no edema in b/l UE Laboratory Results - last 24 hr 12/23/16 12/24/16 12/24/16 15:20 05:10 05:10 WBC 10.5 H 7.5 RBC 2.90 L D 2.45 L Hgb 8.2 L D 7.1 L D Hct 25.0 L D 20.9 L D MCV 86.2 85.5 MCHC 32.9 34.1 RDW 14.7 14.9 Plt Count 160 170 MPV 7.7 7.8 Neutrophils % 68.4 60.8 Lymphocytes % 17.9 21.4 Monocytes % 8.1 8.6 Eosinophils % 5.3 H 9.0 H Basophils % 0.3 0.2 Sodium 145 Potassium 3.9 Chloride 114 H Carbon Dioxide 26 Anion Gap 5 L BUN 8 D Creatinine 0.8 D POC Glucometer Random Glucose 105 D Calcium 7.5 L 12/24/16 05:46 WBC RBC Hgb Hct MCV MCHC RDW Plt Count MPV Neutrophils % Lymphocytes % Monocytes % Eosinophils % Basophils % Sodium Potassium Chloride Carbon Dioxide Anion Gap BUN Creatinine POC Glucometer 140.33644 Random Glucose Calcium Active Medications Generic Name Dose Route Start Last Admin Trade Name Freq PRN Reason Stop Dose Admin Acetaminophen 1,000 mg 12/22/16 22:24 12/24/16 00:10 Ofirmev Injection - IVPB 1,000 mg Q6H PRN Administration PAIN Metronidazole 100 mls @ 100 mls/hr 12/20/16 18:00 12/24/16 01:58 Flagyl 500mg Premixed Ivpb - IVPB 100 mls/hr Q8H-IV [facility] Administration Levofloxacin 100 mls @ 100 mls/hr 12/21/16 10:00 12/23/16 09:01 Levaquin 500 Mg Premixed Ivpb - IVPB 100 mls/hr DAILY [facility] Administration Insulin Aspart 1 vial 12/21/16 16:45 12/24/16 06:21 Novolog Vial Sliding Scale - SQ Not Given BIDI [facility] Protocol Ondansetron HCl 4 mg 12/21/16 16:10 12/22/16 13:40 Zofran Injection IVPUSH 4 mg Q6H PRN Administration NAUSEA AND/OR VOMITING Ranitidine HCl 150 mg 12/23/16 10:00 12/23/16 09:34 Zantac - PO 150 mg DAILY [facility] Administration ASSESSMENT/PLAN: 89 yr old woman with hx of partial colon resection, COPD, HTN presented with GIB in setting of NSAID use and diverticulitis on abdominal CT scan admitted to the ICU for continous GIB bleeding. - right IJ placed today GI GIB likely from diverticulitis exacerbated by recent NSAID use - improved continue prbc's to maintain hgb>7.0 and hct>30 received 1 unit of FFP last night continue flagyl and levaquin for diverticulitis tolerated soft diet well for lunch. zofran 4mg q6hr prn for nausea tylenol 1gm IVPB for pain Cardiovascular HTN hold home anti-HTN (norvasc, lisinopril, metoprolol tart) consider restarting BB /norvasc if BP elevates. Pulmonary hx of COPD/asthma, maintaining saturation currently on room air symbicort BID daily nasal cannula to maintain o2 sat >90% Endocrine IDDM II hold glipizide and levemir maintain BGM 140-180, NISS Renal YESICA- resolved avoid NSAIDS Infectious disease - coverage for diverticulitis levaquin 500mg IVPB daily - day 4 Flagyl 500mg IVPB q8hr - Day 4 Hematological maintain H/H >7/>30, transfuse prbc's prn DVT: scd's Diet: liquid diet, will advance to full in the morning if h/h stable Visit type - Emergency Visit Emergency Visit: No - New Patient This patient is new to me today: No - Critical Care Critical Care patient: Yes Total Critical Care Time (in minutes): 36 Critical Care Statement: The care of this patient involved high complexity decision making to prevent further life threatening deterioration of the patient 's condition and/or to evalute & treat vital organ system(s) failure or risk of failure.
[2016-12-24 09:36] LABS: PHOSPHOROUS 2.2 mg/dL (2.5-4.9)
--- NOTE | 2016-12-24 10:18 | PN ---
Progress Note, Physician Chief Complaint: Pt sitting up in chair Feels well wants to eat No BM so far - Current Medication List Current Medications: Active Medications Acetaminophen (Ofirmev Injection -) 1,000 mg IVPB Q6H PRN PRN Reason: PAIN Last Admin: 12/24/16 00:10 Dose: 1,000 mg Metronidazole (Flagyl 500mg Premixed Ivpb -) 100 mls @ 100 mls/hr IVPB Q8H-IV [facility] Last Admin: 12/24/16 01:58 Dose: 100 mls/hr Levofloxacin (Levaquin 500 Mg Premixed Ivpb -) 100 mls @ 100 mls/hr IVPB DAILY [facility] Last Admin: 12/23/16 09:01 Dose: 100 mls/hr Insulin Aspart (Novolog Vial Sliding Scale -) 1 vial SQ BIDI [facility] PRN Reason: Protocol Last Admin: 12/24/16 06:21 Dose: Not Given Ondansetron HCl (Zofran Injection) 4 mg IVPUSH Q6H PRN PRN Reason: NAUSEA AND/OR VOMITING Last Admin: 12/22/16 13:40 Dose: 4 mg Ranitidine HCl (Zantac -) 150 mg PO DAILY [facility] Last Admin: 12/23/16 09:34 Dose: 150 mg - Objective Vital Signs: Vital Signs Temperature 97.4 F L 12/24/16 06:00 Pulse Rate 75 12/24/16 09:56 Respiratory Rate 16 12/24/16 09:00 Blood Pressure 152/57 12/24/16 09:00 O2 Sat by Pulse Oximetry (%) 97 12/24/16 09:56 Constitutional: Yes: No Distress, Calm, Pallor Cardiovascular: Yes: Regular Rate and Rhythm Respiratory: Yes: Diminished Gastrointestinal: Yes: Normal Bowel Sounds, Soft, Tenderness (epigastrium). No : Distention Edema: No Labs: CBC, BMP 12/24/16 05:10 12/24/16 05:10 INR, PTT INR 1.34 (0.82-1.09) H 12/21/16 11:12 Problem List - Problems (1) Abdominal pain Code(s): R10.9 - UNSPECIFIED ABDOMINAL PAIN (2) Diverticulitis large intestine Code(s): K57.32 - DVTRCLI OF LG INT W/O PERFORATION OR ABSCESS W/O BLEEDING (3) Gastrointestinal bleed Code(s): K92.2 - GASTROINTESTINAL HEMORRHAGE, UNSPECIFIED Qualifiers: GI bleed type/associated pathology: diverticulosis Qualified Code(s) : K57.91 - Diverticulosis of intestine, part unspecified, without perforation or abscess with bleeding Assessment/Plan PLAN on clear liquids now received one unit PRBC yesterday, yet HCT decreased, no active bleeding spoke with ICU team-- may need to do a bleeding scan to localize bleeding-- they will speak with Dr Yost- IR Monitor hb/HCT SCD for DVT prophylaxis IV antibiotics pancolonic diverticulosis surgical eval noted- Pt and daughter would like to avoid surgery if possible
[2016-12-24 10:46] LABS: BASOPHIL 0.2 % (0-2.0); EOSINOPHIL 8.7 % (0-4.5); MCH 29.8 pg (25.7-33.7); MCHC 34.7 g/dl (32.0-36.0); MEAN CELL VOLUME 85.9 fl (80-96); NEUTROPHILS 62.5 % (42.8-82.8); PLATELET COUNT 181 K/MM3 (134-434); RDW 14.7 % (11.6-15.6)
[2016-12-24] MEDS: RANITIDINE HCL 150 MG TABLET (FP) PO SCH (10:53)
--- NOTE | 2016-12-24 11:25 | PN ---
Teaching Attending Note Name of Resident: Imelda Jacobo ATTENDING PHYSICIAN STATEMENT I saw and evaluated the patient. I reviewed the resident's note and discussed the case with the resident. I agree with the resident's findings and plan as documented. SUBJECTIVE: Patient seen and examined in the ICU. Awake and alert. Still with some non- specific epigastric and RLQ discomfort. No CP or SOB. H&H still slowly trending down. Intake & Output 12/21/16 12/22/16 12/23/16 12/24/16 23:59 23:59 23:59 23:59 Intake Total 4535 3562.5 2120 340 Output Total 2700 1550 Balance 4535 3562.5 -580 -1210 Weight 172 lb 2.896 oz 173 lb 8.061 oz 175 lb 0.752 oz 174 lb 1.6 oz Last Vital Signs Temp Pulse Resp BP Pulse Ox 97.4 F L 75 16 152/57 97 12/24/16 06:00 12/24/16 09:56 12/24/16 09:00 12/24/16 09:00 12/24/16 09:56 Active Medications Acetaminophen (Ofirmev Injection -) 1,000 mg IVPB Q6H PRN PRN Reason: PAIN Last Admin: 12/24/16 00:10 Dose: 1,000 mg Budesonide/Formoterol Fumarate (Symbicort 160/4.5mcg -) 2 puff IH BID [facility] Metronidazole (Flagyl 500mg Premixed Ivpb -) 100 mls @ 100 mls/hr IVPB Q8H-IV [facility] Last Admin: 12/24/16 01:58 Dose: 100 mls/hr Levofloxacin (Levaquin 500 Mg Premixed Ivpb -) 100 mls @ 100 mls/hr IVPB DAILY [facility] Last Admin: 12/23/16 09:01 Dose: 100 mls/hr Insulin Aspart (Novolog Vial Sliding Scale -) 1 vial SQ BIDI [facility] PRN Reason: Protocol Last Admin: 12/24/16 06:21 Dose: Not Given Methimazole (Tapazole -) 10 mg PO DAILY [facility] Ondansetron HCl (Zofran Injection) 4 mg IVPUSH Q6H PRN PRN Reason: NAUSEA AND/OR VOMITING Last Admin: 12/22/16 13:40 Dose: 4 mg Ranitidine HCl (Zantac -) 150 mg PO DAILY [facility] Last Admin: 12/24/16 10:53 Dose: 150 mg Constitutional: Yes: Awake and alert Eyes: Yes: WNL, Conjunctiva Clear, EOM Intact HENT: Yes: WNL, Atraumatic, Normocephalic Neck: Yes: WNL, Supple, Trachea Midline Cardiovascular: Yes: WNL, Regular Rate and Rhythm Respiratory: Yes: WNL, Regular, CTA Bilaterally Gastrointestinal: Yes: (+) mild tenderness RLQ, Soft, Obese, No Distention ...Rectal Exam: Yes: Deferred Renal/: Yes: WNL Breast(s): Yes: WNL Musculoskeletal: Yes: WNL Extremities: Yes: WNL Edema: No Peripheral Pulses WNL: No Neurological: Yes: WNL, Alert ...Motor Strength: WNL Psychiatric: Yes: WNL, Alert, Oriented Labs: Laboratory Results - last 24 hr 12/20/16 12/23/16 12/24/16 12:20 15:20 05:10 WBC 10.5 H 7.5 RBC 2.90 L D 2.45 L Hgb 8.2 L D 7.1 L D Hct 25.0 L D 20.9 L D MCV 86.2 85.5 MCHC 32.9 34.1 RDW 14.7 14.9 Plt Count 160 170 MPV 7.7 7.8 Neutrophils % 68.4 60.8 Lymphocytes % 17.9 21.4 Monocytes % 8.1 8.6 Eosinophils % 5.3 H 9.0 H Basophils % 0.3 0.2 Sodium Potassium Chloride Carbon Dioxide Anion Gap BUN Creatinine POC Glucometer Random Glucose Calcium Phosphorus Magnesium Blood Type O POSITIVE Antibody Screen Negative Crossmatch See Detail 12/24/16 12/24/16 12/24/16 05:10 05:10 05:46 WBC RBC Hgb Hct MCV MCHC RDW Plt Count MPV Neutrophils % Lymphocytes % Monocytes % Eosinophils % Basophils % Sodium 145 Potassium 3.9 Chloride 114 H Carbon Dioxide 26 Anion Gap 5 L BUN 8 D Creatinine 0.8 D POC Glucometer 140.51324 Random Glucose 105 D Calcium 7.5 L Phosphorus 2.2 L Magnesium 2.0 Blood Type Antibody Screen Crossmatch 12/24/16 10:41 WBC 9.0 RBC 2.97 L D Hgb 8.8 L D Hct 25.5 L D MCV 85.9 MCHC 34.7 RDW 14.7 Plt Count 181 MPV 7.0 L D Neutrophils % 62.5 Lymphocytes % 21.0 Monocytes % 7.6 Eosinophils % 8.7 H Basophils % 0.2 Sodium Potassium Chloride Carbon Dioxide Anion Gap BUN Creatinine POC Glucometer Random Glucose Calcium Phosphorus Magnesium Blood Type Antibody Screen Crossmatch Problem List - Problems (1) Gastrointestinal bleed Code(s): K92.2 - GASTROINTESTINAL HEMORRHAGE, UNSPECIFIED (2) Diverticulitis large intestine Code(s): K57.32 - DVTRCLI OF LG INT W/O PERFORATION OR ABSCESS W/O BLEEDING (3) Hypertension Code(s): I10 - ESSENTIAL (PRIMARY) HYPERTENSION (4) Asthma Code(s): J45.909 - UNSPECIFIED ASTHMA, UNCOMPLICATED (5) Diabetes Code(s): E11.9 - TYPE 2 DIABETES MELLITUS WITHOUT COMPLICATIONS Assessment/Plan -NPO -Will D/W radiology if further imaging in indicated -O2 for an SpO2 > 92% -BD TX -IS -HOB > 30 -Will need access (unable to insert peripheral IV access) -Serial CBCs -Normal transfusion thresholds -Strict I's & O's -PPI -Hold AC Dr Eastman Critical care time spent in reviewing chart, evaluating patient and formulating plan 40 min
[2016-12-24] MEDS ORDERED: LIDOCAINE HCL 1%, 10 MG/ML (50 mL VIAL) SQ ONE (12:22)
--- NOTE | 2016-12-24 12:38 | PROC ---
Central Line Insertion Indication: Poor Venous Access Risks and Benefits Explained: Yes Consent on Chart: Yes Central Line: Other (Single lumen micro-puncture system) Anesthesia: 1% Lidocaine Sterile Technique: Yes Ultrasound Guided Assistance: Yes Position: Right Internal Jugular Post Insertion: Yes: Bilateral Breath Sounds, Bilateral Chest Expansion, Chest X-Ray Ordered Sterile Dressing Applied: Yes
[2016-12-24] MEDS: LEVOFLOXACIN 500 MG IVPB 100 ML IVPB SCH (13:25)
--- NOTE | 2016-12-24 13:35 | PN ---
GI Progress Note Subjective: No bleeding now since wednesday States feeling well - Objective Vital Signs: Vital Signs Temperature 98.6 F 12/24/16 10:00 Pulse Rate 98 H 12/24/16 12:00 Respiratory Rate 24 12/24/16 12:00 Blood Pressure 157/75 12/24/16 12:00 O2 Sat by Pulse Oximetry (%) 99 12/24/16 11:31 Constitutional: Calm Cardiovascular: Yes: Regular Rate and Rhythm Gastrointestinal Inspection: No: Distention ...Auscultate: Yes: Normoactive Bowel Sounds ...Palpate: No: Tenderness Labs: CBC, BMP 12/24/16 10:41 12/24/16 05:10 INR, PTT INR 1.34 (0.82-1.09) H 12/21/16 11:12 Problem List - Problems (1) Gastrointestinal bleed Assessment/Plan: Suspected resolved diverticular bleed H/H stable COntinue monitoring Full liquids then advance to low sodium diet in AM if no further bleeding Code(s): K92.2 - GASTROINTESTINAL HEMORRHAGE, UNSPECIFIED Qualifiers: GI bleed type/associated pathology: diverticulosis Qualified Code(s) : K57.91 - Diverticulosis of intestine, part unspecified, without perforation or abscess with bleeding
[2016-12-24] MEDS: METHIMAZOLE 5 MG TABLET (FP) PO SCH (13:38)
[2016-12-24] MEDS ORDERED: POTASSIUM PHOSPHATE 15 MM in DEXTROSE 5%-WATER - 250 ML IVPB ONE (14:51)
[2016-12-24 16:10] LABS: BASOPHIL 0.3 % (0-2.0); EOSINOPHIL 6.4 % (0-4.5); MCHC 33.5 g/dl (32.0-36.0); MEAN CELL VOLUME 86.6 fl (80-96); MEAN PLT VOLUME 7.8 fl (7.5-11.1); NEUTROPHILS 63.6 % (42.8-82.8); PLATELET COUNT 186 K/MM3 (134-434); RDW 14.7 % (11.6-15.6); WHITE BLOOD COUNT 8.7 K/mm3 (4.0-10.0)
[2016-12-24] MEDS: BUDESONIDE/FORMETEROL FUMARATE 160/4.5 mcg INHALER IH SCH (21:11)
[2016-12-25] MEDS: METRONIDAZOLE 500 MG PREMIXED 100 ML IVPB SCH ×2 (02:30→09:37)
[2016-12-25] MEDS: INSULIN SLIDING SCALE (NOVOLOG) 1 VIAL SQ SCH ×2 (06:01→17:38)
[2016-12-25 06:10] LABS: BASOPHIL 0.3 % (0-2.0); EOSINOPHIL 14.2 % (0-4.5); MCH 29.8 pg (25.7-33.7); MCHC 34.5 g/dl (32.0-36.0); MEAN CELL VOLUME 86.3 fl (80-96); MEAN PLT VOLUME 7.6 fl (7.5-11.1); NEUTROPHILS 54.9 % (42.8-82.8); PLATELET COUNT 215 K/MM3 (134-434); RDW 14.5 % (11.6-15.6); WHITE BLOOD COUNT 7.6 K/mm3 (4.0-10.0)
[2016-12-25 06:28] LABS: CALCIUM 8.2 mg/dL (8.5-10.1); COCKROFT - GAULT 64.957; CREATININE 0.7 mg/dL (0.55-1.02); MAGNESIUM 1.8 mg/dL (1.8-2.4); PHOSPHOROUS 2.3 mg/dL (2.5-4.9)
--- NOTE | 2016-12-25 08:45 | PN ---
Progress Note (short form) - Note Progress Note: - Note Progress Note: pt seen/ examined in icu chart reviewed. comfortable no further bleeding. denies pain. h/h stable Vital Signs Temp 97.8 F 12/25/16 06:00 Pulse 76 12/25/16 06:00 Resp 18 12/25/16 06:00 BP 160/55 12/25/16 09:16 Pulse Ox 98 12/24/16 21:00 Intake & Output 12/24/16 12/24/16 12/25/16 11:59 23:59 11:59 Intake Total 340 1720 100 Output Total 1550 Balance -1210 1720 100 Weight 174 lb 1.6 oz 166 lb 8 oz Intake: IVPB 100 400 100 Oral 240 1320 Output: Urine 1550 Cap[place] 1550 Other: Voiding Method Indwelling Catheter Diaper # Unmeasured Voids Void 2 3 Bowel Movement No Yes: light gold brown loose Weight Measurement Method Built in Bedscale Built in Bedscale Active Medications Acetaminophen (Ofirmev Injection -) 1,000 mg IVPB Q6H PRN PRN Reason: PAIN Last Admin: 12/24/16 21:38 Dose: 1,000 mg Budesonide/Formoterol Fumarate (Symbicort 160/4.5mcg -) 2 puff IH BID [facility] Last Admin: 12/25/16 09:37 Dose: 2 puff Metronidazole (Flagyl 500mg Premixed Ivpb -) 100 mls @ 100 mls/hr IVPB Q8H-IV [facility] Last Admin: 12/25/16 09:37 Dose: 100 mls/hr Levofloxacin (Levaquin 500 Mg Premixed Ivpb -) 100 mls @ 100 mls/hr IVPB DAILY [facility] Last Admin: 12/25/16 09:37 Dose: 100 mls/hr Potassium Phosphate 15 mm/ (Dextrose) 255 mls @ 62.5 mls/hr IVPB ONCE ONE Stop: 12/25/16 12:49 Insulin Aspart (Novolog Vial Sliding Scale -) 1 vial SQ BIDI [facility] PRN Reason: Protocol Last Admin: 12/25/16 06:01 Dose: Not Given Methimazole (Tapazole -) 10 mg PO DAILY [facility] Last Admin: 12/25/16 09:36 Dose: 10 mg Ondansetron HCl (Zofran Injection) 4 mg IVPUSH Q6H PRN PRN Reason: NAUSEA AND/OR VOMITING Last Admin: 12/22/16 13:40 Dose: 4 mg Ranitidine HCl (Zantac -) 150 mg PO DAILY [facility] Last Admin: 12/25/16 09:37 Dose: 150 mg CBC, BMP 12/25/16 05:00 12/25/16 05:00 Laboratory Results - last 24 hr 12/20/16 12/23/16 12/24/16 12:20 16:35 10:41 WBC 9.0 RBC 2.97 L D Hgb 8.8 L D Hct 25.5 L D MCV 85.9 MCHC 34.7 RDW 14.7 Plt Count 181 MPV 7.0 L D Neutrophils % 62.5 Lymphocytes % 21.0 Monocytes % 7.6 Eosinophils % 8.7 H Basophils % 0.2 Sodium Potassium Chloride Carbon Dioxide Anion Gap BUN Creatinine POC Glucometer [phone] Random Glucose Calcium Phosphorus Magnesium Blood Type O POSITIVE Antibody Screen Negative Crossmatch See Detail 12/24/16 12/24/16 12/24/16 10:41 14:50 17:48 WBC 8.7 RBC 2.61 L Hgb 7.6 L D Hct 22.6 L MCV 86.6 MCHC 33.5 RDW 14.7 Plt Count 186 MPV 7.8 D Neutrophils % 63.6 Lymphocytes % 22.0 Monocytes % 7.7 Eosinophils % 6.4 H Basophils % 0.3 Sodium Potassium Chloride Carbon Dioxide Anion Gap BUN Creatinine POC Glucometer 196.98205 Random Glucose Calcium Phosphorus Magnesium Blood Type O POSITIVE Antibody Screen Negative Crossmatch 12/25/16 12/25/16 12/25/16 05:00 05:00 05:36 WBC 7.6 RBC 2.80 L Hgb 8.3 L Hct 24.2 L MCV 86.3 MCHC 34.5 RDW 14.5 Plt Count 215 MPV 7.6 Neutrophils % 54.9 Lymphocytes % 22.5 Monocytes % 8.1 Eosinophils % 14.2 H D Basophils % 0.3 Sodium 145 Potassium 3.9 Chloride 111 H Carbon Dioxide 29 Anion Gap 5 L BUN 6 L D Creatinine 0.7 POC Glucometer [phone] Random Glucose 107 H Calcium 8.2 L Phosphorus 2.3 L Magnesium 1.8 Blood Type Antibody Screen Crossmatch Microbiology 12/20/16 14:36 Blood Culture - Preliminary Blood - Peripheral Venous NO GROWTH OBTAINED AFTER 96 HOURS, INCUBATION TO CONTINUE FOR 1 DAYS. 12/20/16 14:36 Blood Culture - Preliminary Blood - Peripheral Venous NO GROWTH OBTAINED AFTER 96 HOURS, INCUBATION TO CONTINUE FOR 1 DAYS. Physical exam Constitutional: Yes: No Distress, Calm, Pallor Cardiovascular: Yes: Regular Rate and Rhythm Respiratory: Yes: Diminished at bases Gastrointestinal: Yes: Normal Bowel Sounds, Soft, non tender. Edema: No Neuro - Alert and awake Problem List - Problems (1) Abdominal pain Code(s): R10.9 - UNSPECIFIED ABDOMINAL PAIN (2) Diverticulitis large intestine Code(s): K57.32 - DVTRCLI OF LG INT W/O PERFORATION OR ABSCESS W/O BLEEDING (3) Gastrointestinal bleed Code(s): K92.2 - GASTROINTESTINAL HEMORRHAGE, UNSPECIFIED Qualifiers: GI bleed type/associated pathology: diverticulosis Qualified Code(s) : K57.91 - Diverticulosis of intestine, part unspecified, without perforation or abscess with bleeding Assessment/Plan stable appears bleeding stopped monitor on clear liquids now- advance slowly continue present care close monitoring . will follow discussed with nursing staff also will discuss with Dr. Haq also. cc time - 25 min
[2016-12-25] MEDS: METHIMAZOLE 5 MG TABLET (FP) PO SCH (09:36)
[2016-12-25] MEDS: BUDESONIDE/FORMETEROL FUMARATE 160/4.5 mcg INHALER IH SCH (09:37)
[2016-12-25] MEDS: RANITIDINE HCL 150 MG TABLET (FP) PO SCH (09:37)
[2016-12-25] MEDS: LEVOFLOXACIN 500 MG IVPB 100 ML IVPB SCH (09:37)
[2016-12-25] MEDS ORDERED: POTASSIUM PHOSPHATE 15 MM in DEXTROSE 5%-WATER - 250 ML IVPB ONE (10:00)
--- NOTE | 2016-12-25 11:47 | PN ---
Teaching Attending Note Name of Resident: Imelda Jacobo ATTENDING PHYSICIAN STATEMENT I saw and evaluated the patient. I reviewed the resident's note and discussed the case with the resident. I agree with the resident's findings and plan as documented. SUBJECTIVE: Pt seen and examined in the ICU. No further bleeding. Tolerating clears. No shortness of breath or chest pain. No abdominal pain. OBJECTIVE: Last Vital Signs Temp Pulse Resp BP Pulse Ox 97.9 F 66 18 160/55 98 12/25/16 10:16 12/25/16 10:16 12/25/16 10:16 12/25/16 10:16 12/24/16 21:00 Intake & Output 12/22/16 12/23/16 12/24/16 12/25/16 23:59 23:59 23:59 23:59 Intake Total 3562.5 2120 2060 100 Output Total 2700 1550 Balance 3562.5 -580 510 100 Weight 173 lb 8.061 oz 175 lb 0.752 oz 174 lb 1.6 oz 166 lb 8 oz Gen: NAD at rest Heart: RRR Lung: decreased breath sounds at the bases Abd: soft, nontender Ext: no edema CBC, BMP 12/25/16 05:00 12/25/16 05:00 Active Medications Acetaminophen (Ofirmev Injection -) 1,000 mg IVPB Q6H PRN PRN Reason: PAIN Last Admin: 12/24/16 21:38 Dose: 1,000 mg Budesonide/Formoterol Fumarate (Symbicort 160/4.5mcg -) 2 puff IH BID [facility] Last Admin: 12/25/16 09:37 Dose: 2 puff Metronidazole (Flagyl 500mg Premixed Ivpb -) 100 mls @ 100 mls/hr IVPB Q8H-IV [facility] Last Admin: 12/25/16 09:37 Dose: 100 mls/hr Levofloxacin (Levaquin 500 Mg Premixed Ivpb -) 100 mls @ 100 mls/hr IVPB DAILY [facility] Last Admin: 12/25/16 09:37 Dose: 100 mls/hr Potassium Phosphate 15 mm/ (Dextrose) 255 mls @ 62.5 mls/hr IVPB ONCE ONE Stop: 12/25/16 14:04 Last Admin: 12/25/16 10:19 Dose: 62.5 mls/hr Insulin Aspart (Novolog Vial Sliding Scale -) 1 vial SQ BIDI [facility] PRN Reason: Protocol Last Admin: 12/25/16 06:01 Dose: Not Given Methimazole (Tapazole -) 10 mg PO DAILY [facility] Last Admin: 12/25/16 09:36 Dose: 10 mg Ondansetron HCl (Zofran Injection) 4 mg IVPUSH Q6H PRN PRN Reason: NAUSEA AND/OR VOMITING Last Admin: 12/22/16 13:40 Dose: 4 mg Ranitidine HCl (Zantac -) 150 mg PO DAILY [facility] Last Admin: 12/25/16 09:37 Dose: 150 mg ASSESSMENT AND PLAN: GI Bleed Pancolic Diverticulosis Acute Blood Loss Anemia HTN DM - monitor H/H - can likely d/c antibiotics - PO per GI - DVT prophylaxis - can monitor on floor
[2016-12-25] MEDS: ONDANSETRON 4 MG/2 ML VIAL IVPUSH PRN (13:14)
--- NOTE | 2016-12-25 13:54 | PN ---
Physical Exam: SUBJECTIVE: Patient seen and examined. felt lightheaded when moving from chair to bed which resolved after laying in bed for a few minutes. denies abdominal pain, chest pain, fever, vomiting, nausea. OBJECTIVE: Vital Signs Period Temp Pulse Resp BP Sys/[place]if[place] Pulse Ox Last 24 Hr 97.8 F-98.9 F 64-111 15-23 120-164/45-63 97-98 EYES: PERRL, extraocular movements intact, sclera anicteric ENT: oropharynx clear without exudates, moist mucous membranes CHEST: right lateral chest ttp, no bruising, skin intact, no swelling NECK: Trachea midline, right IJ CDI LUNGS: Breath sounds equal, clear to auscultation bilaterally, quiet at bases, no wheezes, no crackles HEART: Regular rate and rhythm, S1, S2 without murmur, rub or gallop. ABDOMEN: Soft, less tender, nondistended, normoactive bowel sounds, no guarding , no rebound. EXTREMITIES: 2+ b/l radial and dp pulses, warm, well-perfused, no edema diffuse purpura black/blue in appearance on right knee without swelling/erythema , skin intact. Laboratory Results - last 24 hr 12/24/16 12/24/16 12/25/16 14:50 17:48 05:00 WBC 8.7 7.6 RBC 2.61 L 2.80 L Hgb 7.6 L D 8.3 L Hct 22.6 L 24.2 L MCV 86.6 86.3 MCHC 33.5 34.5 RDW 14.7 14.5 Plt Count 186 215 MPV 7.8 D 7.6 Neutrophils % 63.6 54.9 Lymphocytes % 22.0 22.5 Monocytes % 7.7 8.1 Eosinophils % 6.4 H 14.2 H D Basophils % 0.3 0.3 Sodium Potassium Chloride Carbon Dioxide Anion Gap BUN Creatinine POC Glucometer 196.52473 Random Glucose Calcium Phosphorus Magnesium 12/25/16 12/25/16 05:00 05:36 WBC RBC Hgb Hct MCV MCHC RDW Plt Count MPV Neutrophils % Lymphocytes % Monocytes % Eosinophils % Basophils % Sodium 145 Potassium 3.9 Chloride 111 H Carbon Dioxide 29 Anion Gap 5 L BUN 6 L D Creatinine 0.7 POC Glucometer [phone] Random Glucose 107 H Calcium 8.2 L Phosphorus 2.3 L Magnesium 1.8 Active Medications Generic Name Dose Route Start Last Admin Trade Name Freq PRN Reason Stop Dose Admin Acetaminophen 1,000 mg 12/22/16 22:24 12/24/16 21:38 Ofirmev Injection - IVPB 1,000 mg Q6H PRN Administration PAIN Budesonide/Formoterol Fumarate 2 puff 12/24/16 22:00 12/25/16 09:37 Symbicort 160/4.5mcg - IH 2 puff BID [facility] Administration Metronidazole 100 mls @ 100 mls/hr 12/20/16 18:00 12/25/16 09:37 Flagyl 500mg Premixed Ivpb - IVPB 100 mls/hr Q8H-IV [facility] Administration Levofloxacin 100 mls @ 100 mls/hr 12/21/16 10:00 12/25/16 09:37 Levaquin 500 Mg Premixed Ivpb - IVPB 100 mls/hr DAILY [facility] Administration Potassium Phosphate 15 mm/ 255 mls @ 62.5 mls/hr 12/25/16 10:00 12/25/16 10:19 Dextrose IVPB 12/25/16 14:04 62.5 mls/hr ONCE ONE Administration Insulin Aspart 1 vial 12/21/16 16:45 12/25/16 06:01 Novolog Vial Sliding Scale - SQ Not Given BIDI [facility] Protocol Methimazole 10 mg 12/24/16 12:00 12/25/16 09:36 Tapazole - PO 10 mg DAILY [facility] Administration Ondansetron HCl 4 mg 12/21/16 16:10 12/25/16 13:14 Zofran Injection IVPUSH 4 mg Q6H PRN Administration NAUSEA AND/OR VOMITING Ranitidine HCl 150 mg 12/23/16 10:00 12/25/16 09:37 Zantac - PO 150 mg DAILY [facility] Administration ASSESSMENT/PLAN: 89 yr old woman with hx of partial colon resection, COPD, HTN presented with GIB in setting of NSAID use and diverticulitis on abdominal CT scan admitted to the ICU for continous GIB bleeding. GI GIB likely from diverticulitis exacerbated by recent NSAID use - improved, h/h remains stable continue prbc's to maintain hgb>7.0 and hct>30 complated flagyl and levaquin for diverticulitis for 6 days tolerated diet zofran 4mg q6hr prn for nausea tylenol 1gm IVPB for pain Cardiovascular HTN hold home anti-HTN (norvasc, lisinopril, metoprolol tart) consider restarting BB /norvasc if BP elevates. Pulmonary hx of COPD/asthma symbicort BID daily nasal cannula to maintain o2 sat >90% Endocrine IDDM II hold glipizide and levemir maintain BGM 140-180, NISS Renal YESICA- resolved avoid NSAIDS Infectious disease - coverage for diverticulitis can stop abx as condition improved Hematological maintain H/H >7/>30, transfuse prbc's prn DVT: scd's Diet: liquid diet, will advance as tolerated Dispo: likely resolution of GIB, can be monitored on Med/surg floor Visit type - Emergency Visit Emergency Visit: No - New Patient This patient is new to me today: No - Critical Care Critical Care patient: Yes Total Critical Care Time (in minutes): 36 Critical Care Statement: The care of this patient involved high complexity decision making to prevent further life threatening deterioration of the patient 's condition and/or to evalute & treat vital organ system(s) failure or risk of failure.
[2016-12-25] MEDS ORDERED: ACETAMINOPHEN 1000 MG/100 ML VIAL (NON FORMULARY) IVPB PRN (16:09)
[2016-12-25] MEDS ORDERED: ONDANSETRON 4 MG/2 ML VIAL IVPUSH PRN (16:09)
--- NOTE | 2016-12-25 19:04 | PN ---
GI Progress Note Subjective: No rectal bleeding C/O diarrhea C/O Pain in right abdomen from last night - Objective Vital Signs: Vital Signs Temperature 97.9 F 12/25/16 10:16 Pulse Rate 111 H 12/25/16 12:00 Respiratory Rate 22 12/25/16 12:00 Blood Pressure 120/62 12/25/16 12:00 O2 Sat by Pulse Oximetry (%) 97 12/25/16 12:35 Constitutional: Calm Eyes: No: Sclera Icterus Cardiovascular: Yes: Regular Rate and Rhythm Respiratory: Yes: CTA Bilaterally Gastrointestinal Inspection: No: Distention ...Auscultate: Yes: Normoactive Bowel Sounds ...Palpate: Yes: Tenderness (TTP right mid to lower abdomen) Neurological: Yes: Alert, Oriented Labs: CBC, BMP 12/25/16 05:00 12/25/16 05:00 INR, PTT INR 1.34 (0.82-1.09) H 12/21/16 11:12 Problem List - Problems (1) Gastrointestinal bleed Assessment/Plan: No further bleeding If rebleeding, will need surgical f/u Advance diet after CT scan performed Code(s): K92.2 - GASTROINTESTINAL HEMORRHAGE, UNSPECIFIED Qualifiers: GI bleed type/associated pathology: diverticulosis Qualified Code(s) : K57.91 - Diverticulosis of intestine, part unspecified, without perforation or abscess with bleeding (2) Abdominal pain Assessment/Plan: CT scan of the abdomen / pelvis with PO contrast Advance diet once CT scan reviewed Code(s): R10.9 - UNSPECIFIED ABDOMINAL PAIN
[2016-12-26] MEDS: INSULIN SLIDING SCALE (NOVOLOG) 1 VIAL SQ SCH ×2 (06:49→17:15)
[2016-12-26] MEDS: BUDESONIDE/FORMETEROL FUMARATE 160/4.5 mcg INHALER IH SCH ×3 (08:32→23:28)
[2016-12-26] MEDS: RANITIDINE HCL 150 MG TABLET (FP) PO SCH (09:21)
[2016-12-26] MEDS: METHIMAZOLE 5 MG TABLET (FP) PO SCH (09:23)
--- NOTE | 2016-12-26 11:08 | PN ---
Progress Note (short form) - Note Progress Note: Pt seen/ examined feels better denies abd pain. no diarrhea today dont want ct scan wants to eat solid food no further bleeding Vital Signs Temp 98.4 F 12/26/16 09:12 Pulse 84 12/26/16 09:12 Resp 18 12/26/16 09:12 BP 157/78 12/26/16 09:12 Pulse Ox 97 12/25/16 21:00 Intake & Output 12/25/16 12/25/16 12/26/16 11:59 23:59 11:59 Intake Total 100 350 60 Balance 100 350 60 Weight 166 lb 8 oz Intake: IV 60 LFA#20 12/23/16 s/l 60 IVPB 100 350 Other: Voiding Method Diaper Diaper # Unmeasured Voids Void 3 3 Bowel Movement Yes # Bowel Movements 2 Weight [facility] Medications Budesonide/Formoterol Fumarate (Symbicort 160/4.5mcg -) 2 puff IH BID [facility] Last Admin: 12/26/16 09:36 Dose: 2 inhaler Insulin Aspart (Novolog Vial Sliding Scale -) 1 vial SQ BIDI [facility] PRN Reason: Protocol Last Admin: 12/26/16 06:49 Dose: Not Given Methimazole (Tapazole -) 10 mg PO DAILY [facility] Last Admin: 12/26/16 09:23 Dose: 10 mg Ondansetron HCl (Zofran Injection) 4 mg IVPUSH Q6H PRN PRN Reason: NAUSEA AND/OR VOMITING Ranitidine HCl (Zantac -) 150 mg PO DAILY [facility] Last Admin: 12/26/16 09:21 Dose: 150 mg CBC, BMP 12/25/16 05:00 12/25/16 05:00 Physical exam Constitutional: Yes: No Distress, Calm, looks better Cardiovascular: Yes: Regular Rate and Rhythm Respiratory: Yes: Diminished at bases Gastrointestinal: Yes: Normal Bowel Sounds, Soft, non tender. Edema: No Neuro - Alert and awake Problem List - Problems (1) Abdominal pain Code(s): R10.9 - UNSPECIFIED ABDOMINAL PAIN (2) Diverticulitis large intestine Code(s): K57.32 - DVTRCLI OF LG INT W/O PERFORATION OR ABSCESS W/O BLEEDING (3) Gastrointestinal bleed Code(s): K92.2 - GASTROINTESTINAL HEMORRHAGE, UNSPECIFIED Qualifiers: GI bleed type/associated pathology: diverticulosis Qualified Code(s) : K57.91 - Diverticulosis of intestine, part unspecified, without perforation or abscess with bleeding Assessment/Plan stable better on clear liquids now- advance slowly---gi to follow continue present care c diff ordered discussed with nursing staff also daily oob - chair physical therapy will follow monitor cbc / electrolytes
[2016-12-26 12:02] LABS: BASOPHIL 0.2 % (0-2.0); MCH 29.6 pg (25.7-33.7); MCHC 33.6 g/dl (32.0-36.0); MEAN CELL VOLUME 87.9 fl (80-96); MEAN PLT VOLUME 7.1 fl (7.5-11.1); NEUTROPHILS 59.7 % (42.8-82.8); PLATELET COUNT 219 K/MM3 (134-434); RDW 14.3 % (11.6-15.6); WHITE BLOOD COUNT 9.4 K/mm3 (4.0-10.0)
--- NOTE | 2016-12-26 14:32 | PN ---
GI Progress Note Subjective: No acute events No bleeding No abdominal pain now and wants to eat solid food + diarrhea last night, no BM yet today Refused CT scan last night because she had alot of diarrhea and the oral contrast made her nauseous - Objective Vital Signs: Vital Signs Temperature 98.4 F 12/26/16 09:12 Pulse Rate 84 12/26/16 09:12 Respiratory Rate 18 12/26/16 09:12 Blood Pressure 157/78 12/26/16 09:12 O2 Sat by Pulse Oximetry (%) 97 12/25/16 21:00 Constitutional: Calm Cardiovascular: Yes: Regular Rate and Rhythm Respiratory: Yes: CTA Bilaterally Gastrointestinal Inspection: No: Distention ...Auscultate: Yes: Normoactive Bowel Sounds ...Palpate: No: Tenderness Labs: CBC, BMP 12/26/16 11:28 12/25/16 05:00 INR, PTT INR 1.34 (0.82-1.09) H 12/21/16 11:12 Problem List - Problems (1) Gastrointestinal bleed Assessment/Plan: No bleeding Advance diet Code(s): K92.2 - GASTROINTESTINAL HEMORRHAGE, UNSPECIFIED Qualifiers: GI bleed type/associated pathology: diverticulosis Qualified Code(s) : K57.91 - Diverticulosis of intestine, part unspecified, without perforation or abscess with bleeding (2) Abdominal pain Assessment/Plan: No further abdominal pain Code(s): R10.9 - UNSPECIFIED ABDOMINAL PAIN (3) Diarrhea Assessment/Plan: Awaiting stool studies Code(s): R19.7 - DIARRHEA, UNSPECIFIED
[2016-12-27] MEDS: INSULIN SLIDING SCALE (NOVOLOG) 1 VIAL SQ SCH ×2 (06:42→17:04)
[2016-12-27 07:31] LABS: BASOPHIL 0.4 % (0-2.0); EOSINOPHIL 10.3 % (0-4.5); MCH 29.9 pg (25.7-33.7); MCHC 33.9 g/dl (32.0-36.0); MEAN PLT VOLUME 7.4 fl (7.5-11.1); PLATELET COUNT 238 K/MM3 (134-434); RDW 14.7 % (11.6-15.6); WHITE BLOOD COUNT 8.3 K/mm3 (4.0-10.0)
[2016-12-27 08:43] LABS: ALBUMIN 2.4 g/dl (3.4-5.0); ALK PHOS 63 U/L (45-117); ANION GAP 5 (8-16); BILIRUBIN,TOTAL 0.3 mg/dL (0.2-1.0); CALCIUM 8.1 mg/dL (8.5-10.1); CO2 29 mmol/L (21-32); CREATININE 0.7 mg/dL (0.55-1.02); GLUCOSE,RANDOM 113 mg/dL (74-106); SGOT/AST 23 U/L (15-37); SGPT/ALT 20 U/L (12-78); THYROID STIMULATING HORMONE 0.41 uIU/ml (0.358-3.74); TOT PROT 4.7 g/dl (6.4-8.2)
[2016-12-27] MEDS ORDERED: PT OWN MED DRAWER 7, Y5N ONE ×2 (09:15→21:02)
[2016-12-27] MEDS: METHIMAZOLE 5 MG TABLET (FP) PO SCH (09:21)
[2016-12-27] MEDS: RANITIDINE HCL 150 MG TABLET (FP) PO SCH (09:22)
[2016-12-27] MEDS: BUDESONIDE/FORMETEROL FUMARATE 160/4.5 mcg INHALER IH SCH ×2 (09:22→22:19)
--- NOTE | 2016-12-27 10:17 | PN ---
Progress Note (short form) - Note Progress Note: Pt seen/ examined feels ok but weak no further bleeding tolerating diet denies pain. Vital Signs Temp 98.9 F 12/26/16 22:00 Pulse 85 12/26/16 22:00 Resp 18 12/26/16 22:00 BP 132/50 12/26/16 22:00 Pulse Ox 97 12/26/16 09:00 Intake & Output 12/26/16 12/26/16 12/27/16 11:59 23:59 11:59 Intake Total 360 350 300 Balance 360 350 300 Weight 167 lb Intake: IV 60 LFA#20 12/23/16 s/l 60 Oral 300 350 300 Other: Voiding Method Diaper Incontinent Diaper # Unmeasured Voids Void 2 Bowel Movement Yes No # Bowel Movements 1 Weight Measurement Method Built in [facility] Active Medications Budesonide/Formoterol Fumarate (Symbicort 160/4.5mcg -) 2 puff IH BID [facility] Last Admin: 12/27/16 09:22 Dose: 2 inhaler Insulin Aspart (Novolog Vial Sliding Scale -) 1 vial SQ BIDI [facility] PRN Reason: Protocol Last Admin: 12/27/16 06:42 Dose: Not Given Methimazole (Tapazole -) 10 mg PO DAILY [facility] Last Admin: 12/27/16 09:21 Dose: 10 mg Ondansetron HCl (Zofran Injection) 4 mg IVPUSH Q6H PRN PRN Reason: NAUSEA AND/OR VOMITING Ranitidine HCl (Zantac -) 150 mg PO DAILY [facility] Last Admin: 12/27/16 09:22 Dose: 150 mg CBC, BMP 12/27/16 06:10 12/27/16 06:10 Physical exam Constitutional: Yes: No Distress, Calm, weak Cardiovascular: Yes: Regular Rate and Rhythm Respiratory: Yes: Diminished at bases Gastrointestinal: Yes: Normal Bowel Sounds, Soft, non tender. Edema: No Neuro - Alert and awake Problem List - Problems (1) Abdominal pain Code(s): R10.9 - UNSPECIFIED ABDOMINAL PAIN (2) Diverticulitis large intestine Code(s): K57.32 - DVTRCLI OF LG INT W/O PERFORATION OR ABSCESS W/O BLEEDING (3) Gastrointestinal bleed Code(s): K92.2 - GASTROINTESTINAL HEMORRHAGE, UNSPECIFIED Qualifiers: GI bleed type/associated pathology: diverticulosis Qualified Code(s) : K57.91 - Diverticulosis of intestine, part unspecified, without perforation or abscess with bleeding Assessment/Plan stable continue present care denies diarrhea c diff pending h/h stable d/c planning-- likely tomorrow home with vns or str-- will see tomorrow.
[2016-12-28] MEDS: INSULIN SLIDING SCALE (NOVOLOG) 1 VIAL SQ SCH (06:51)
--- NOTE | 2016-12-28 08:35 | DS ---
Physical Examination Vital Signs: Vital Signs Temperature 98.8 F 12/28/16 06:00 Pulse Rate 80 12/28/16 06:00 Respiratory Rate 18 12/28/16 06:00 Blood Pressure 152/82 12/28/16 06:00 O2 Sat by Pulse Oximetry (%) 93 L 12/27/16 21:00 Labs: CBC, BMP 12/27/16 06:10 12/27/16 06:10 <Bree Madrid - Last Filed: 12/28/16 08:35> Vital Signs: Vital Signs Temperature 98.8 F 12/28/16 06:00 Pulse Rate 80 12/28/16 06:00 Respiratory Rate 18 12/28/16 06:00 Blood Pressure 152/82 12/28/16 06:00 O2 Sat by Pulse Oximetry (%) 93 L 12/27/16 21:00 Labs: CBC, BMP 12/27/16 06:10 <Camila Carty - Last Filed: 12/28/16 13:12> Discharge Summary Reason For Visit: GASTROINTESTINAL BLEED Current Active Problems Abdominal pain (Acute) Asthma (Acute) Diabetes (Acute) Diarrhea (Acute) Diverticulitis large intestine (Acute) Diverticulitis large intestine w/o perforation or abscess w/bleeding (Acute) Gastrointestinal bleed (Acute) Hypertension (Acute) Hypotension (Acute) - Home Medications Comprehensive Discharge Medication List: Ambulatory Orders Albuterol Sulfate [Proair Respiclick] 90 mcg IH DAILY 12/20/16 Amlodipine Besylate [Norvasc -] 10 mg PO DAILY 12/20/16 Budesonide/Formeterol Fumarate [SYMBICORT 160/4.5mcg -] 1 inh PO DAILY 12/20/16 Escitalopram Oxalate [Lexapro -] 10 mg PO DAILY 12/20/16 Insulin (Levemir) [Levemir Flexpen -] 14 units SQ DAILY 12/20/16 L.acidoph,Paracasei, B.lactis [Probiotic] 1 each PO DAILY 12/20/16 Lisinopril [Prinivil] 20 mg PO DAILY 12/20/16 Methimazole 10 mg PO DAILY 12/20/16 Metoprolol Tartrate 25 mg PO DAILY 12/20/16 Pantoprazole Sodium 40 mg PO DAILY 12/20/16 Vitamin B Complex 1 each PO DAILY 12/20/16 <Bree Madrid - Last Filed: 12/28/16 08:35> Current Active Problems Abdominal pain (Acute) Asthma (Acute) Diabetes (Acute) Diarrhea (Acute) Diverticulitis large intestine (Acute) Diverticulitis large intestine w/o perforation or abscess w/bleeding (Acute) Gastrointestinal bleed (Acute) Hypertension (Acute) Hypotension (Acute) - Home Medications Comprehensive Discharge Medication List: Ambulatory Orders Albuterol Sulfate [Proair Respiclick] 90 mcg IH DAILY 12/20/16 Amlodipine Besylate [Norvasc -] 10 mg PO DAILY 12/20/16 Budesonide/Formeterol Fumarate [SYMBICORT 160/4.5mcg -] 1 inh PO DAILY 12/20/16 Escitalopram Oxalate [Lexapro -] 10 mg PO DAILY 12/20/16 Insulin (Levemir) [Levemir Flexpen -] 14 units SQ DAILY 12/20/16 L.acidoph,Paracasei, B.lactis [Probiotic] 1 each PO DAILY 12/20/16 Lisinopril [Prinivil] 20 mg PO DAILY 12/20/16 Methimazole 10 mg PO DAILY 12/20/16 Metoprolol Tartrate 25 mg PO DAILY 12/20/16 Pantoprazole Sodium 40 mg PO DAILY 12/20/16 Vitamin B Complex 1 each PO DAILY 12/20/16 <Camila Carty - Last Filed: 12/28/16 13:12> Condition: Stable - Instructions Referrals: Bree Madrid MD [Primary Care Provider] - Disposition: HOME
[2016-12-28] MEDS: BUDESONIDE/FORMETEROL FUMARATE 160/4.5 mcg INHALER IH SCH (09:44)
[2016-12-28] MEDS ORDERED: PT OWN MED DRAWER 7, Y5N ONE (09:44)
[2016-12-28] MEDS: RANITIDINE HCL 150 MG TABLET (FP) PO SCH (09:45)
[2016-12-28] MEDS: METHIMAZOLE 5 MG TABLET (FP) PO SCH (09:45)
[2016-12-28 10:02] LABS: BASOPHIL 0.4 % (0-2.0); EOSINOPHIL 10.8 % (0-4.5); MCH 30.1 pg (25.7-33.7); MCHC 33.9 g/dl (32.0-36.0); MEAN PLT VOLUME 7.4 fl (7.5-11.1); PLATELET COUNT 278 K/MM3 (134-434); RDW 14.6 % (11.6-15.6); WHITE BLOOD COUNT 9.5 K/mm3 (4.0-10.0)
--- NOTE | 2016-12-28 11:34 | PN ---
Progress Note (short form) - Note Progress Note: Resting in NAD. No acute events overnight. No further bleeding. Tolerating PO intake. No shortness of breath or chest pain. OBJECTIVE: Intake & Output 12/25/16 12/26/16 12/27/16 12/28/16 23:59 23:59 23:59 23:59 Intake Total 549 353 1947 240 Balance 559 426 8849 240 Weight 166 lb 8 oz 167 lb 149 lb 6.4 oz Last Vital Signs Temp Pulse Resp BP Pulse Ox 98.8 F 80 18 152/82 93 L 12/28/16 06:00 12/28/16 06:00 12/28/16 06:00 12/28/16 06:00 12/27/16 21:00 Active Medications Budesonide/Formoterol Fumarate (Symbicort 160/4.5mcg -) 2 puff IH BID [facility] Last Admin: 12/28/16 09:44 Dose: 1 inhaler Insulin Aspart (Novolog Vial Sliding Scale -) 1 vial SQ BIDI [facility] PRN Reason: Protocol Last Admin: 12/28/16 06:51 Dose: Not Given Methimazole (Tapazole -) 10 mg PO DAILY [facility] Last Admin: 12/28/16 09:45 Dose: 10 mg Ondansetron HCl (Zofran Injection) 4 mg IVPUSH Q6H PRN PRN Reason: NAUSEA AND/OR VOMITING Ranitidine HCl (Zantac -) 150 mg PO DAILY [facility] Last Admin: 12/28/16 09:45 Dose: 150 mg Gen: NAD at rest Heart: RRR Lung: decreased breath sounds at the bases Abd: soft, nontender Ext: no edema Laboratory Results - last 24 hr 12/27/16 12/28/16 12/28/16 16:57 06:50 09:30 WBC 9.5 RBC 2.89 L Hgb 8.7 L Hct 25.7 L MCV 89.0 MCHC 33.9 RDW 14.6 Plt Count 278 MPV 7.4 L Neutrophils % 58.0 Lymphocytes % 23.8 Monocytes % 7.0 Eosinophils % 10.8 H Basophils % 0.4 POC Glucometer 270 139 ASSESSMENT AND PLAN: GI Bleed Pancolic Diverticulosis Acute Blood Loss Anemia HTN DM - PO as tolerated - DVT prophylaxis - D/C planning Dr Eastman
[2016-12-28 12:32] VITALS: BP 158/78; PULSE 78; TEMP 98.3
--- NOTE | 2016-12-28 12:35 | DS ---
Physical Examination Vital Signs: Vital Signs Temperature 98.8 F 12/28/16 06:00 Pulse Rate 80 12/28/16 06:00 Respiratory Rate 18 12/28/16 06:00 Blood Pressure 152/82 12/28/16 06:00 O2 Sat by Pulse Oximetry (%) 93 L 12/27/16 21:00 Findings/Remarks: feels well no complains no further bleeding walks with walker dont want str wants to go home today denies pain. no diarrhea overall looks much better. Constitutional: Yes: No Distress, Calm Eyes: Yes: Conjunctiva Clear Neck: Yes: Supple Cardiovascular: Yes: Regular Rate and Rhythm Respiratory: Yes: CTA Bilaterally, Rhonchi (few scattered.) Gastrointestinal: Yes: Soft Edema: No Neurological: Yes: Alert Labs: CBC, BMP 12/28/16 09:30 12/27/16 06:10 Discharge Summary Reason For Visit: GASTROINTESTINAL BLEED Current Active Problems Abdominal pain (Acute) Asthma (Acute) Diabetes (Acute) Diarrhea (Acute) Diverticulitis large intestine (Acute) Diverticulitis large intestine w/o perforation or abscess w/bleeding (Acute) Gastrointestinal bleed (Acute) Hypertension (Acute) Hypotension (Acute) Hospital Course: admitted for gi bleed initially to icu transfused multiple units bleeding scan/ edg/colonoscopy done - no source -- likely diverticular . bleeding stopped now h/h stable tolerating diet will d/c home to day walked avoid NSAIDS Discussed with pt in detail will follow closely in office Pt in agreement meds reconciled discussed with nursing staff also d/c time 35 min in examining/ documenting and coordinating care. Condition: Stable - Instructions Referrals: Bree Madrid MD [Primary Care Provider] - Disposition: HOME - Home Medications Comprehensive Discharge Medication List: Ambulatory Orders Albuterol Sulfate [Proair Respiclick] 90 mcg IH DAILY 12/20/16 Amlodipine Besylate [Norvasc -] 10 mg PO DAILY 12/20/16 Budesonide/Formeterol Fumarate [SYMBICORT 160/4.5mcg -] 1 inh PO DAILY 12/20/16 Escitalopram Oxalate [Lexapro -] 10 mg PO DAILY 12/20/16 Insulin (Levemir) [Levemir Flexpen -] 14 units SQ DAILY 12/20/16 L.acidoph,Paracasei, B.lactis [Probiotic] 1 each PO DAILY 12/20/16 Lisinopril [Prinivil] 20 mg PO DAILY 12/20/16 Methimazole 10 mg PO DAILY 12/20/16 Metoprolol Tartrate 25 mg PO DAILY 12/20/16 Pantoprazole Sodium 40 mg PO DAILY 12/20/16 Vitamin B Complex 1 each PO DAILY 12/20/16
== END 2016-12-28 13:31 | disposition home or self-care (01) | DRG 378 ==
LOC: JER 11:57 → SUPCPDRO 11:57 → JERBED 16:25 → JICU 17:23 → J8W 12-25 14:59
PROVIDERS: ADMIT Internal Medicine; ATTEND Internal Medicine
PROC: 30233N1 Transfusion of Nonautologous Red Blood Cells into Peripheral Vein, Percutaneous Approach (ICD-10-PCS; principal; 2016-12-20)
PROC: 0DJD8ZZ Inspection of Lower Intestinal Tract, Via Natural or Artificial Opening Endoscopic (ICD-10-PCS; 2016-12-22)
PROC: 0DJ08ZZ Inspection of Upper Intestinal Tract, Via Natural or Artificial Opening Endoscopic (ICD-10-PCS; 2016-12-22)
PROC: 05HM33Z Insertion of Infusion Device into Right Internal Jugular Vein, Percutaneous Approach (ICD-10-PCS; 2016-12-27)
PROC: B543ZZA Ultrasonography of Right Jugular Veins, Guidance (ICD-10-PCS; 2016-12-27)
DX: K57.33 Diverticulitis of large intestine without perforation or abscess with bleeding (principal); D62 Acute posthemorrhagic anemia; K57.91 Diverticulosis of intestine, part unspecified, without perforation or abscess with bleeding; E11.9 Type 2 diabetes mellitus without complications; Z79.4 Long term (current) use of insulin; J45.909 Unspecified asthma, uncomplicated; I10 Essential (primary) hypertension; I95.9 Hypotension, unspecified; S40.011A Contusion of right shoulder, initial encounter; S70.01XA Contusion of right hip, initial encounter; S80.01XA Contusion of right knee, initial encounter; W18.30XA Fall on same level, unspecified, initial encounter; Y92.009 Unspecified place in unspecified non-institutional (private) residence as the place of occurrence of the external cause
CPT/HCPCS: 36415; 36430; 36511; 71010-TC; 74020-TC; 74174-TC; 74177-TC; 80048; 80053; 81003; 81015; 82040; 82272; 82550; 83605; 83690; 83735; 84100; 84443; 84484; 85025; 85027; 85610; 85730; 86850; 86900; 86901; 86922; 87040; 87324; 87449; 93005; 93010; 99285-25; P9038; P9058